=== PATIENT | male | born 1975 | race Caucasian/White ===

== ENCOUNTER 2017-01-20 11:46 | Inpatient (IN) | payer MEDICARE, OTHER ==
[2017-01-20 12:14] LABS: Oxyhemoglobin 89.3 % (94.0-97.0); Sodium 135 mmol/L (135-148)
[2017-01-20 12:14] LABS: #Eosinphils 0.1 thou/uL (0.0-0.7); #Lymphocytes 0.9 thou/uL (1.20-3.40); #Monocytes 0.3 thou/uL (0.11-0.59); %Basophils 0.1 % (0.0-1.0); %Eosinophils 0.6 % (0.0-10.0); %Lymphocytes 6.6 % (21.0-51.0); Hematocrit 36.8 % (42.0-52.0); Mean Platelet Volume 7.4 fL (7.4-10.4); Red Blood Cell (RBC) Count 4.07 mill/uL (4.70-6.10); White Blood Cell (WBC) Count 13.2 thou/uL (4.8-10.8)
[2017-01-20 12:15] LABS: Mode NRM; Modified Allen's Test POSITIVE; Vent NO
--- NOTE | 2017-01-20 12:15 | RAD ---
AP CHEST: History: Low oxygen saturation. History of pneumonia. Date: 01-20-17 Comparison: 07-26-16 FINDINGS: AP chest demonstrates Stephany rods in place. There is bilateral perihilar and central lung parench ymal airspace opacities compatible with bilateral pneumonia. No evidence of effusions seen. No eviden ce of pneumothorax seen. IMPRESSION: Bilateral central and perihilar opacities compatible with bilateral pneumonia or possible pulmonary e bailey. Correlate with clinical exam. POS: [facility]
[2017-01-20] MEDS ORDERED: Nitroglycerin 2% Ointment 1 INCH/1 GM Packet ONE (12:33)
[2017-01-20] MEDS ORDERED: Furosemide 40 MG/4 ML VIAL ONE (12:33)
[2017-01-20 12:37] LABS: ALT (SGPT) 9 U/L (8-55); AST (SGOT) 24 U/L (5-34); Alkaline Phosphatase 78 U/L (40-150); Anion Gap 10 mmol/L (10-20); BUN (Urea Nitrogen) 12 mg/dL (8.9-20.6); Bilirubin, Total 0.3 mg/dL (0.2-1.2); CK (CPK) 177 U/L (30-200); Calc. Creatinine Clearance 0 mL/min (70-130); Calcium 8.9 mg/dL (7.8-10.44); Carbon Dioxide 28 mmol/L (22-29); Chloride 100 mmol/L (98-107); Estimated GFR-MDRD Greater than 90; Globulin 3.2 g/dL (2.4-3.5); Protein, Total 6.8 g/dL (6.0-8.3)
[2017-01-20 13:10] LABS: Lactic Acid - Sepsis 1.8 mmol/L (0.5-2.2)
[2017-01-20] MEDS ORDERED: Azithromycin 500 MG, Admixture Fee 1 EACH in Sodium Chloride 0.9% 250 ML 250 ML IVPB SCH (14:00)
[2017-01-20] MEDS ORDERED: cefTRIAXone\\ROCEPHIN 2 GM, Admixture Fee 1 EACH in Sodium Chloride 0.9% 100 ML IVPB SCH (14:00)
[2017-01-20 14:27] LABS: Bilirubin Negative (Negative); Blood, Urine Small (Negative); Glucose, Urine (Dipstick) Negative (Negative); Ketone, Urine Negative (Negative); Nitrite Negative (Negative); Protein, Urine (Dipstick) Negative (Neg-Trace); Urobilinogen 0.2 mg/dL (0.2-1.0)
[2017-01-20 14:30] LABS: Bacteria/HPF None Seen HPF (None Seen); Hyaline Casts/LPF 0-3 HYALINE CAST LPF (0-3 Hyaline); RBC/HPF 0-3 HPF (0-3); Squamous Epithelial None Seen HPF (0-3); WBC/HPF None Seen HPF (0-3)
[2017-01-20 14:40] LABS: Amphetamine Not Detected (NotDetected); Methadone Not Detected (NotDetected); Methamphetamine Not Detected (NotDetected)
[2017-01-20] MEDS ORDERED: Ondansetron ODT 4 MG TAB SL PRN (15:35)
[2017-01-20] MEDS ORDERED: Ondansetron HCl/PF 4 MG/2 ML Vial IVP PRN (15:35)
[2017-01-20] MEDS ORDERED: Acetaminophen 325 MG TAB PO PRN (15:44)
[2017-01-20] MEDS ORDERED: Guaifenesin DM 100-10/5 ML UDCUP PO PRN (15:44)
[2017-01-20] MEDS ORDERED: cefTRIAXone\\ROCEPHIN 1 GM in Sodium Chloride 0.9% 100 ML IVPB SCH (15:45)
[2017-01-20] MEDS: Azithromycin 500 MG in Sodium Chloride 0.9% 250 ML 250 ML IVPB SCH (15:54)
[2017-01-20 15:57] VITALS: BMI 25.2
--- NOTE | 2017-01-20 16:22 | HP ---
REASON FOR ADMISSION: Acute respiratory failure with hypoxia, COPD exacerbation, bilateral pneumonia . HISTORY OF PRESENTING ILLNESS: The patient gives history of having shortness of breath from last nig ht. This has been progressively getting worse. He also developed headache. He has been expectorati ng brown sputum. Patient has history of COPD and also has had nearly 7 surgeries for scoliosis. The rods in his back has broken three times due to his coughing spells from his COPD. He currently has a broken sonali and his neurosurgeon has not been able to fix it due to his ongoing smoking. He was las t hospitalized here early part of this year for pneumonia. The patient states he usually gets pneumo nias during winter season. No complaints of fever, although he had temperature of 99 degrees here. He has been sleeping in a recliner at home due to his back issue. He cannot lay flat. PAST MEDICAL AND SURGICAL HISTORY: COPD, scoliosis with nearly 7 surgeries done for them. The first surgery was when he was 16 years of age. The last one was 2 years back. He has rods broken up thre e places now and needs replacement for the same. He follows up with Dr. Reyes in [place]. Prior pn eudeejay in February. CURRENT MEDICATIONS: Takes soma 350 mg 4 times daily, gabapentin 900 mg p.o. 3 times daily, Lasix 60 mg daily, [place] 10/325 mg one tab 6 times daily, potassium chloride daily. ALLERGIES: No known drug allergies. PERSONAL HISTORY: Does smokes one pack a day. Does not abuse alcohol or drugs. He lives with his p arents. Has a grown up son. FAMILY HISTORY: Mother has glaucoma. Father is healthy. CODE STATUS: FULL. POWER OF HOB MILL OPERATOR: Is his son, Mr. Jhony Tafoya. REVIEW OF SYSTEMS: The following complete review of systems was negative, unless otherwise mentioned in the HPI or below: Constitutional: Weight loss or gain, ability to conduct usual activities. Skin: Rash, itching. Eyes: Double vision, pain. ENT/Mouth: Nose bleeding, neck stiffness, pain, tenderness. Cardiovascular: Palpitations, dyspnea on exertion, orthopnea. Respiratory: Shortness of breath, wheezing, cough, hemoptysis, fever or night sweats. Gastrointestinal: Poor appetite, abdominal pain, heartburn, nausea, vomiting, constipation, or diarr hea. Genitourinary: Urgency, frequency, dysuria, nocturia. Musculoskeletal: Pain, swelling. Neurologic/Psychiatric: Anxiety, depression. Allergy/Immunologic: Skin rash, bleeding tendency. PHYSICAL EXAMINATION: GENERAL: Patient is a 41-year-old male who is currently not in any acute distress. VITAL SIGNS: Blood pressure is 136/74, pulse 108 per minute, respiratory rate is 20 per minute, temp erature 99 degrees Fahrenheit, saturating 64% on room air and 92% on 2 liters nasal cannula. NECK: Supple, no elevated JVD. EYES: Extraocular muscles intact. Pupils reacting to light. ORAL CAVITY: Mucous membranes are dry. No exudates or congestion. CARDIOVASCULAR SYSTEM: S1, S2 heard. Regular rhythm. RESPIRATORY SYSTEM: Air entry 1+ bilateral. Scattered rhonchi plus bilateral. ABDOMEN: Soft, bowel sounds heard. No tenderness, rigidity or guarding. EXTREMITIES: There is 2+ peripheral edema, no calf tenderness. VASCULAR SYSTEM: Peripheral pulses 1+ bilateral. No ischemic ulcerations or gangrene. CENTRAL NERVOUS SYSTEM: No gross focal deficits seen. Patient is alert, awake, and oriented well. PSYCHIATRIC SYSTEM: The patient's mood is euthymic. No hallucinations or delusions. IMAGING AND LABORATORY DATA: Prior echo done in February of this year showed EF of 50%-55%. White co unt of 13, hemoglobin and hematocrit 11 and 36, platelet count 175 with 90% neutrophils, MCV is 90. Blood gas done in the ER shows pH of 7.36, pCO2 45, pO2 of 71. Sodium 134, BUN 12, creatinine 0.8, g lucose 93. Liver enzymes within normal limits. Albumin is 3.6. BNP is 93. Urine drug screen is po sitive for opiates. Chest x-ray done shows bilateral pneumonia. BNP is 93. EKG done shows normal s inus rhythm at 100 beats per minute. There are Q-waves seen in lead II, III, AVF. CLINICAL IMPRESSION AND PLAN: Patient will be admitted to telemetry for pneumonia with history of sc oliosis and ongoing smoking and chronic obstructive pulmonary disease. He also has moderate chronic obstructive pulmonary disease exacerbation as well. We will place him on Zithromax and ceftriaxone a long with Solu-Medrol 40 mg IV q.6 hourly. He will be on DuoNebs. I have consulted Dr. Camejo for Pul monology. He will be on nicotine patch 21 mg daily. Patient was counseled with regarding smoking ce ssation and he wants to quit as well. We will also obtain respiratory cultures and respiratory viral pathogen smear as well. The patient was briefly on BiPAP on arrival in the ER with improvement satu rations from 64% on room air to 98% on BiPAP. He is currently on nasal cannula. We will continue to closely monitor him for any hemodynamic compromise.
[2017-01-20] MEDS ORDERED: FLU VACC QS2017-18 36 mo. & older 0.5 ML SYRINGE IM ONE (17:00)
[2017-01-20] MEDS: Nicotine 21 MG PATCH TD SCH (17:11)
[2017-01-20] MEDS: Gabapentin 300 MG CAP PO SCH (21:54)
[2017-01-20] MEDS: Clindamycin/D5W 600 MG in Premix Bag 1 BAG IVPB SCH (21:54)
[2017-01-20] MEDS: Docusate 100 MG CAP PO SCH (21:54)
[2017-01-20] MEDS: Famotidine 20 MG TAB PO SCH (21:54)
[2017-01-20] MEDS: HYDROcodone/Acetaminophen 10/325 mg Tablet PO PRN (21:55)
--- NOTE | 2017-01-21 00:18 | CON ---
REASON FOR CONSULTATION: 01/20/2017 HISTORY OF PRESENT ILLNESS: Espinoza Goldsmith is a 41-year-old gentleman whom I have seen in the past, pres ented with increasing shortness of breath and a cough, but he denies any fever, chills, sweats, hemop tysis. A long-term smoker, continues to smoke. He has severe limitation to activity. He stays at home with his mom and dad. He had been here numerous times in the hospital. He was seen here in 02/2016. PAST MEDICAL HISTORY: Pneumonia, chronic pain, multiple surgeries, hypertension, chronic pain medica tion. PAST SURGICAL HISTORY: Previous surgeries have otherwise included multiple surgeries including multi ple surgeries on his back. MEDICATIONS: Includes Ventolin inhaler, potassium, hydrocodone, Neurontin , Lasix 20 twice a da y, Soma. He sees his [facility] physician for routine care. ALLERGIES: None. REVIEW OF SYSTEMS: Otherwise, negative. PHYSICAL EXAMINATION: VITAL SIGNS: His sats are 92 on 4 liters, respiratory rate 18, temperature 99, pulse 103, blood pres sure 131/69. CHEST: Reveal bilateral crackles. CARDIAC: Normal S1, S2. No gallops. ABDOMEN: Soft, no masses. LABORATORY DATA: White count 13,000, H and H 11 and 36, platelet count 175. PO2 of 71, PCO2 45, pH 7.36 on nonrebreather. Electrolytes are normal. Sodium 134. Drug screen was negative except for op iates. X-ray, bilateral infiltrates as noted. IMPRESSION: 1. Bilateral bronchopneumonia, probably aspiration. 2. Tobacco use. 3. Chronic pain. PLAN: I will add some clindamycin to his present regime. Await sputum culture. We will deescalate once we get all cultures back. We will follow.
[2017-01-21] MEDS: Clindamycin/D5W 600 MG in Premix Bag 1 BAG IVPB SCH ×3 (06:11→22:20)
[2017-01-21] MEDS: HYDROcodone/Acetaminophen 10/325 mg Tablet PO PRN ×2 (06:11→09:47)
[2017-01-21 06:50] LABS: Anion Gap 11 mmol/L (10-20); BUN (Urea Nitrogen) 11 mg/dL (8.9-20.6); Calc. Creatinine Clearance 156 mL/min (70-130); Calcium 8.9 mg/dL (7.8-10.44); Carbon Dioxide 28 mmol/L (22-29); Chloride 102 mmol/L (98-107); Estimated GFR-MDRD Greater than 90; Hematocrit 36.5 % (42.0-52.0); Mean Platelet Volume 7.6 fL (7.4-10.4); Neutrophil 97 % (42-75); Red Blood Cell (RBC) Count 4.07 mill/uL (4.70-6.10); White Blood Cell (WBC) Count 16.4 thou/uL (4.8-10.8)
[2017-01-21] MEDS: Enoxaparin Sodium 40 MG/0.4 ML SYRINGE SC SCH (09:30)
[2017-01-21] MEDS: Gabapentin 300 MG CAP PO SCH ×3 (09:33→20:03)
[2017-01-21] MEDS: Famotidine 20 MG TAB PO SCH ×2 (09:34→20:03)
[2017-01-21] MEDS: Docusate 100 MG CAP PO SCH ×2 (09:34→20:03)
--- NOTE | 2017-01-21 10:58 | PDOC.PN ---
- Subjective Encounter Start Date: 01/21/17 Encounter Start Time: 07:50 Subjective: breathing better, still has sob - Objective Resuscitation Status: Resuscitation Status FULL:Full Resuscitation MAR Reviewed: Yes Vital Signs & Weight: Vital Signs (12 hours) Temp Pulse Resp BP Pulse Ox 01/21/17 07:09 80 16 01/21/17 04:40 100 01/21/17 04:00 98.7 F 84 16 123/66 100 01/20/17 23:55 93 L 01/20/17 23:43 98.7 F 107 H 20 116/56 L 93 L 01/20/17 23:24 100 16 97 Weight Weight 189 lb 9.6 oz I&O: 01/20/17 01/21/17 01/22/17 06:59 06:59 06:59 Intake Total 290 Output Total 650 Balance -360 Result Diagrams: 01/21/17 06:17 01/21/17 06:17 Phys Exam - Physical Examination HEENT: PERRLA, moist MMs Neck: no JVD, supple Respiratory: no wheezing, no rales rhonchi+ Cardiovascular: RRR, no significant murmur Gastrointestinal: soft, non-tender, positive bowel sounds Musculoskeletal: no edema, pulses present Neurological: non-focal, moves all 4 limbs Psychiatric: A&O x 3 Dx/Plan (1) COPD exacerbation Code(s): J44.1 - CHRONIC OBSTRUCTIVE PULMONARY DISEASE W (ACUTE) EXACERBATION Status: Acute (2) PNA (pneumonia) Code(s): J18.9 - PNEUMONIA, UNSPECIFIED ORGANISM Status: Acute Qualifiers: Pneumonia type: aspiration pneumonia Aspiration pneumonia type: due to regurgitated food Laterality: bilateral (3) Acute respiratory failure with hypoxia Code(s): J96.01 - ACUTE RESPIRATORY FAILURE WITH HYPOXIA Status: Resolved (4) Chronic anemia Code(s): D64.9 - ANEMIA, UNSPECIFIED Status: Chronic (5) Scoliosis Status: Chronic Qualifiers: Idiopathic scoliosis type: adolescent Spinal region: cervicothoracic Comment: has had nearly 7 surgeries, currently his rods are broken and needs another surgery (6) Tobacco abuse Code(s): Z72.0 - TOBACCO USE Status: Chronic - Plan is on ceftriaxone, azithro and clindamycin -: tmax of 100 last 24hrs -: iv steroids, nebs, tx to med floor, is on nasal canula -: viral pcr is +ve for adeno and rhinovirus * . Review of Systems - Medications/Allergies Allergies/Adverse Reactions: Allergies Allergy/AdvReac Type Severity Reaction Status Date / Time No Known Drug Allergies Allergy Verified 09/10/16 02:33 Medications: Current Medications Acetaminophen (Tylenol) 650 mg PO Q4H PRN PRN Reason: Headache/Fever or Pain Hydrocodone Bitart/Acetaminophen ([place] 10/325) 1 tab PO Q4H PRN PRN Reason: Moderate Pain (4-6) Last Admin: 01/21/17 09:47 Dose: 1 tab Albuterol/Ipratropium (Duoneb) 3 ml NEB [id number] [facility] Last Admin: 01/21/17 07:09 Dose: 3 ml Carisoprodol (Soma) 350 mg PO QID [facility] Last Admin: 01/21/17 09:34 Dose: 350 mg Docusate Sodium (Colace) 100 mg PO BID [facility] Last Admin: 01/21/17 09:34 Dose: 100 mg Enoxaparin Sodium (Lovenox) 40 mg SC 0900 [facility] Last Admin: 01/21/17 09:30 Dose: 40 mg Famotidine (Pepcid) 20 mg PO BID [facility] Last Admin: 01/21/17 09:34 Dose: 20 mg Gabapentin (Neurontin) 900 mg PO TID [facility] Last Admin: 01/21/17 09:33 Dose: 900 mg Guaifenesin/Dextromethorphan (Robitussin Dm) 15 ml PO Q4H PRN PRN Reason: Cough Azithromycin 500 mg/ Sodium (Chloride) 250 mls @ 250 mls/hr IVPB Q24HR [facility] Last Admin: 01/20/17 15:54 Dose: Not Given Ceftriaxone Sodium 1 gm/ (Syringe 0.4 ml/ Sterile Water) 10 mls @ 120 mls/hr SLOW IVP Q24HR [facility] Clindamycin Phosphate/Dextrose (600 mg/ Device) 50 mls @ 100 mls/hr IVPB Q8HR [facility] Last Admin: 01/21/17 06:11 Dose: 50 mls Methylprednisolone Sodium Succinate (Solu-Medrol) 20 mg IVP Q8HR [facility] Nicotine (Nicoderm Patch) 21 mg TD Q24HR [facility] Last Admin: 01/20/17 17:11 Dose: 21 mg
[2017-01-21] MEDS: cefTRIAXone\\ROCEPHIN 1 GM, Syringe 0.4 ML in Sterile Water 9.6 ML SLOW IVP SCH (14:40)
--- NOTE | 2017-01-21 14:54 | PRG ---
DATE OF SERVICE: 01/21/2017 PHYSICAL EXAMINATION: VITAL SIGNS: Temperature is 98, pulse is 80, respiratory rate 18, blood pressure 120/86. GENERAL: He denies any difficulty breathing. He is lying in bed. CHEST: Reveals decreased breath sounds, no wheezing. CARDIAC: Normal S1, S2, no gallops. ABDOMEN: Soft, no masses. LABORATORY DATA: White count 16,000, hemoglobin and hematocrit 11 and 36, platelet count 184. Elect rolytes are normal. ASSESSMENT: Bilateral bronchopneumonia, chronic pain. PLAN: Continue antibiotics, continue neb treatments, steroids. Ambulate.
[2017-01-21] MEDS: Nicotine 21 MG PATCH TD SCH (16:51)
[2017-01-21] MEDS: Azithromycin 500 MG in Sodium Chloride 0.9% 250 ML 250 ML IVPB SCH (16:51)
[2017-01-22] MEDS: HYDROcodone/Acetaminophen 10/325 mg Tablet PO PRN ×2 (00:51→12:43)
[2017-01-22 05:27] LABS: Anion Gap 11 mmol/L (10-20); BUN (Urea Nitrogen) 17 mg/dL (8.9-20.6); Calc. Creatinine Clearance 154 mL/min (70-130); Calcium 8.9 mg/dL (7.8-10.44); Carbon Dioxide 29 mmol/L (22-29); Chloride 102 mmol/L (98-107); Estimated GFR-MDRD Greater than 90
[2017-01-22] MEDS: Clindamycin/D5W 600 MG in Premix Bag 1 BAG IVPB SCH (05:41)
[2017-01-22 06:00] LABS: Mean Platelet Volume 8.2 fL (7.4-10.4); Neutrophil 83 % (42-75); Red Blood Cell (RBC) Count 3.91 mill/uL (4.70-6.10); White Blood Cell (WBC) Count 16.8 thou/uL (4.8-10.8)
[2017-01-22] MEDS: Gabapentin 300 MG CAP PO SCH ×3 (08:37→20:56)
[2017-01-22] MEDS: Enoxaparin Sodium 40 MG/0.4 ML SYRINGE SC SCH (08:37)
[2017-01-22] MEDS: Docusate 100 MG CAP PO SCH ×2 (08:37→20:56)
[2017-01-22] MEDS: Famotidine 20 MG TAB PO SCH ×2 (08:37→20:56)
--- NOTE | 2017-01-22 11:52 | PDOC.PN ---
- Subjective Encounter Start Date: 01/22/17 Encounter Start Time: 10:15 Subjective: still has sob -: no chest pain - Objective Resuscitation Status: Resuscitation Status FULL:Full Resuscitation MAR Reviewed: Yes Vital Signs & Weight: Vital Signs (12 hours) Temp Pulse Resp BP Pulse Ox 01/22/17 08:00 98 F 68 20 99 01/22/17 07:48 68 20 96 01/22/17 07:43 98.0 F 69 16 119/71 97 01/22/17 04:51 99.6 F 77 22 H 124/63 99 01/22/17 03:43 94 L 01/22/17 00:00 98 F 86 22 H 110/59 L 91 L Weight Weight 189 lb 9.6 oz I&O: 01/21/17 01/22/17 01/23/17 06:59 06:59 06:59 Intake Total 290 931 Output Total 650 Balance -360 931 Result Diagrams: 01/22/17 04:18 01/22/17 04:18 Phys Exam - Physical Examination HEENT: PERRLA, moist MMs Neck: no JVD, supple Respiratory: no wheezing, no rales rhonchi+ Cardiovascular: RRR, no significant murmur Gastrointestinal: soft, non-tender, no distention, positive bowel sounds Musculoskeletal: no edema, pulses present Neurological: non-focal, moves all 4 limbs Psychiatric: A&O x 3 Dx/Plan (1) COPD exacerbation Code(s): J44.1 - CHRONIC OBSTRUCTIVE PULMONARY DISEASE W (ACUTE) EXACERBATION Status: Acute (2) PNA (pneumonia) Code(s): J18.9 - PNEUMONIA, UNSPECIFIED ORGANISM Status: Acute Qualifiers: Pneumonia type: aspiration pneumonia Aspiration pneumonia type: due to regurgitated food Laterality: bilateral (3) Acute respiratory failure with hypoxia Code(s): J96.01 - ACUTE RESPIRATORY FAILURE WITH HYPOXIA Status: Resolved (4) Chronic anemia Code(s): D64.9 - ANEMIA, UNSPECIFIED Status: Chronic (5) Scoliosis Status: Chronic Qualifiers: Idiopathic scoliosis type: adolescent Spinal region: cervicothoracic Comment: has had nearly 7 surgeries, currently his rods are broken and needs another surgery (6) Tobacco abuse Code(s): Z72.0 - TOBACCO USE Status: Chronic - Plan is on nebs, steroids -: azithromycin, off clinda now -: oob to chair and amb more -: i.spirometer * . Review of Systems - Medications/Allergies Allergies/Adverse Reactions: Allergies Allergy/AdvReac Type Severity Reaction Status Date / Time No Known Drug Allergies Allergy Verified 09/10/16 02:33 Medications: Current Medications Acetaminophen (Tylenol) 650 mg PO Q4H PRN PRN Reason: Headache/Fever or Pain Last Admin: 01/21/17 19:15 Dose: 650 mg Hydrocodone Bitart/Acetaminophen ([place] 10/325) 1 tab PO Q4H PRN PRN Reason: Moderate Pain (4-6) Last Admin: 01/22/17 00:51 Dose: 1 tab Albuterol/Ipratropium (Duoneb) 3 ml NEB [id number] [facility] Last Admin: 01/22/17 07:48 Dose: 3 ml Carisoprodol (Soma) 350 mg PO QID [facility] Last Admin: 01/22/17 08:36 Dose: Not Given Docusate Sodium (Colace) 100 mg PO BID [facility] Last Admin: 01/22/17 08:37 Dose: 100 mg Enoxaparin Sodium (Lovenox) 40 mg SC 0900 [facility] Last Admin: 01/22/17 08:37 Dose: 40 mg Famotidine (Pepcid) 20 mg PO BID [facility] Last Admin: 01/22/17 08:37 Dose: 20 mg Gabapentin (Neurontin) 900 mg PO TID [facility] Last Admin: 01/22/17 08:37 Dose: 900 mg Guaifenesin/Dextromethorphan (Robitussin Dm) 15 ml PO Q4H PRN PRN Reason: Cough Azithromycin 500 mg/ Sodium (Chloride) 250 mls @ 250 mls/hr IVPB Q24HR [facility] Last Admin: 01/21/17 16:51 Dose: 250 mls Ceftriaxone Sodium 1 gm/ (Syringe 0.4 ml/ Sterile Water) 10 mls @ 120 mls/hr SLOW IVP Q24HR [facility] Last Admin: 01/21/17 14:40 Dose: 10 mls Methylprednisolone Sodium Succinate (Solu-Medrol) 20 mg IVP Q8HR [facility] Last Admin: 01/22/17 05:41 Dose: 20 mg Nicotine (Nicoderm Patch) 21 mg TD Q24HR [facility] Last Admin: 01/21/17 16:51 Dose: 21 mg Sodium Chloride (Flush - Normal Saline) 10 ml IVF PRN PRN PRN Reason: Saline Flush Last Admin: 01/22/17 05:41 Dose: 10 ml
--- NOTE | 2017-01-22 13:29 | PRG ---
DATE OF SERVICE: 01/22/2017 SUBJECTIVE: The patient is a 41-year-old male who apparently was having difficulty breathing last ni ght, though he sats on a Ventimask at 99. Denies any difficulty breathing. PHYSICAL EXAMINATION: VITAL SIGNS: Pulse 68, temperature 98, blood pressure 190/77. CHEST: Reveals bilateral rhonchi and crackles. CARDIAC: Normal S1, S2. No gallops. ABDOMEN: Soft, no masses. LABORATORY DATA: White count 16,000, hemoglobin and hematocrit is 10 and 30, platelet count is chitra l. Electrolytes are normal. IMPRESSION: 1. Respiratory failure, bilateral bronchopneumonia. 2. Chronic pain. PLAN: X-ray is being ordered. Hopefully, we will try and deescalate his antibiotics and his steroid s. Continue PT and supportive care. We will follow.
--- NOTE | 2017-01-22 13:52 | RAD ---
TWO VIEW CHEST: HISTORY: Dyspnea. COMPARISON: 01/20/17. FINDINGS: Interstitial and hazy alveolar infiltrates are seen bilaterally. These infiltrates may be slightly i mproved when compared to 01/20/17. POS: [facility]
[2017-01-22] MEDS: Azithromycin 500 MG in Sodium Chloride 0.9% 250 ML 250 ML IVPB SCH (15:05)
[2017-01-22] MEDS: cefTRIAXone\\ROCEPHIN 1 GM, Syringe 0.4 ML in Sterile Water 9.6 ML SLOW IVP SCH (15:05)
[2017-01-22] MEDS: Nicotine 21 MG PATCH TD SCH (17:30)
[2017-01-23] MEDS: HYDROcodone/Acetaminophen 10/325 mg Tablet PO PRN ×3 (02:10→14:11)
[2017-01-23 04:41] LABS: Anion Gap 12 mmol/L (10-20); BUN (Urea Nitrogen) 20 mg/dL (8.9-20.6); Calc. Creatinine Clearance 167 mL/min (70-130); Calcium 8.4 mg/dL (7.8-10.44); Carbon Dioxide 28 mmol/L (22-29); Chloride 104 mmol/L (98-107); Estimated GFR-MDRD Greater than 90
[2017-01-23 04:52] LABS: Band 1 % (5-11); Hematocrit 32.4 % (42.0-52.0); Mean Platelet Volume 7.2 fL (7.4-10.4); Neutrophil 81 % (42-75); Red Blood Cell (RBC) Count 3.64 mill/uL (4.70-6.10); White Blood Cell (WBC) Count 10.4 thou/uL (4.8-10.8)
[2017-01-23] MEDS: Docusate 100 MG CAP PO SCH ×2 (08:19→20:37)
[2017-01-23] MEDS: Famotidine 20 MG TAB PO SCH ×2 (08:20→20:38)
[2017-01-23] MEDS: Enoxaparin Sodium 40 MG/0.4 ML SYRINGE SC SCH (08:20)
[2017-01-23] MEDS: Gabapentin 300 MG CAP PO SCH ×3 (08:24→20:37)
[2017-01-23] MEDS: predniSONE 20 MG TAB PO SCH (09:49)
[2017-01-23] MEDS: Doxycycline 100 MG CAP PO SCH ×2 (10:39→20:37)
--- NOTE | 2017-01-23 12:53 | PDOC.PN ---
- Subjective Encounter Start Date: 01/23/17 Encounter Start Time: 11:00 Subjective: breathing better today -: is amb in room - Objective Resuscitation Status: Resuscitation Status FULL:Full Resuscitation MAR Reviewed: Yes Vital Signs & Weight: Vital Signs (12 hours) Temp Pulse Resp BP Pulse Ox 01/23/17 08:00 97.9 F 60 16 108/61 100 01/23/17 07:47 53 L 24 H 100 Weight Weight 189 lb 9.6 oz I&O: 01/22/17 01/23/17 01/24/17 06:59 06:59 06:59 Intake Total 931 961 Output Total 300 Balance 931 661 Result Diagrams: 01/23/17 03:42 01/23/17 03:42 Phys Exam - Physical Examination HEENT: PERRLA, moist MMs Neck: no JVD, supple Respiratory: no wheezing, no rales rhonchi+ Cardiovascular: RRR, no significant murmur Gastrointestinal: soft, non-tender, positive bowel sounds Musculoskeletal: no edema, pulses present Neurological: non-focal, moves all 4 limbs Psychiatric: A&O x 3 Dx/Plan (1) COPD exacerbation Code(s): J44.1 - CHRONIC OBSTRUCTIVE PULMONARY DISEASE W (ACUTE) EXACERBATION Status: Acute (2) PNA (pneumonia) Code(s): J18.9 - PNEUMONIA, UNSPECIFIED ORGANISM Status: Acute Qualifiers: Pneumonia type: aspiration pneumonia Aspiration pneumonia type: due to regurgitated food Laterality: bilateral (3) Acute respiratory failure with hypoxia Code(s): J96.01 - ACUTE RESPIRATORY FAILURE WITH HYPOXIA Status: Resolved (4) Chronic anemia Code(s): D64.9 - ANEMIA, UNSPECIFIED Status: Chronic (5) Scoliosis Status: Chronic Qualifiers: Idiopathic scoliosis type: adolescent Spinal region: cervicothoracic Comment: has had nearly 7 surgeries, currently his rods are broken and needs another surgery (6) Tobacco abuse Code(s): Z72.0 - TOBACCO USE Status: Chronic - Plan is on ceftriaxone, duoneb -: oral prednisone -: taper and dc nasal oxygen for spo2 of 90% -: to amb as tolerated -: dc plan in 24-36hrs * . Review of Systems - Medications/Allergies Allergies/Adverse Reactions: Allergies Allergy/AdvReac Type Severity Reaction Status Date / Time No Known Drug Allergies Allergy Verified 09/10/16 02:33 Medications: Current Medications Acetaminophen (Tylenol) 650 mg PO Q4H PRN PRN Reason: Headache/Fever or Pain Last Admin: 01/21/17 19:15 Dose: 650 mg Hydrocodone Bitart/Acetaminophen ([place] 10/325) 1 tab PO Q4H PRN PRN Reason: Moderate Pain (4-6) Last Admin: 01/23/17 09:48 Dose: 1 tab Albuterol/Ipratropium (Duoneb) 3 ml NEB [id number] [facility] Last Admin: 01/23/17 07:47 Dose: 3 ml Carisoprodol (Soma) 350 mg PO QID [facility] Last Admin: 01/23/17 12:48 Dose: 350 mg Docusate Sodium (Colace) 100 mg PO BID [facility] Last Admin: 01/23/17 08:19 Dose: Not Given Doxycycline Hyclate (Vibramycin) 100 mg PO BID [facility] Last Admin: 01/23/17 10:39 Dose: 100 mg Enoxaparin Sodium (Lovenox) 40 mg SC 0900 [facility] Last Admin: 01/23/17 08:20 Dose: 40 mg Famotidine (Pepcid) 20 mg PO BID [facility] Last Admin: 01/23/17 08:20 Dose: 20 mg Gabapentin (Neurontin) 900 mg PO TID [facility] Last Admin: 01/23/17 08:24 Dose: 900 mg Guaifenesin/Dextromethorphan (Robitussin Dm) 15 ml PO Q4H PRN PRN Reason: Cough Ceftriaxone Sodium 1 gm/ (Syringe 0.4 ml/ Sterile Water) 10 mls @ 120 mls/hr SLOW IVP Q24HR [facility] Last Admin: 01/22/17 15:05 Dose: 10 mls Nicotine (Nicoderm Patch) 21 mg TD Q24HR [facility] Last Admin: 01/22/17 17:30 Dose: 21 mg Prednisone (Prednisone) 20 mg PO QAM-WM [facility] Last Admin: 01/23/17 09:49 Dose: 20 mg Sodium Chloride (Flush - Normal Saline) 10 ml IVF PRN PRN PRN Reason: Saline Flush Last Admin: 01/23/17 05:25 Dose: 10 ml
--- NOTE | 2017-01-23 13:36 | PRG ---
DATE OF SERVICE: 01/23/2017 SUBJECTIVE: Mr. Espinoza Goldsmith this morning is better. PHYSICAL EXAMINATION: GENERAL: Awake, alert, responsive. VITAL SIGNS: Sats are 90% on 40% Ventimask, temperature 97, respirations 16, pulse 60. CHEST: Bilateral crackles. CARDIAC: Normal S1, S2, no gallops. ABDOMEN: Soft. LABORATORY DATA: White count 10,000. Electrolytes are normal. IMAGING DATA: X-ray taken yesterday shows infiltrates are somewhat better, though he still got bilat eral haziness. IMPRESSION: Bilateral bronchopneumonia, improved. PLAN: Switch over to oral antibiotics. Nutrition and PT. We will follow.
[2017-01-23] MEDS: cefTRIAXone\\ROCEPHIN 1 GM, Syringe 0.4 ML in Sterile Water 9.6 ML SLOW IVP SCH (14:08)
[2017-01-23] MEDS: Nicotine 21 MG PATCH TD SCH (14:12)
[2017-01-24] MEDS: HYDROcodone/Acetaminophen 10/325 mg Tablet PO PRN ×3 (04:07→12:51)
[2017-01-24] MEDS: Doxycycline 100 MG CAP PO SCH (07:50)
[2017-01-24] MEDS: predniSONE 20 MG TAB PO SCH (07:50)
[2017-01-24] MEDS: Enoxaparin Sodium 40 MG/0.4 ML SYRINGE SC SCH (07:51)
[2017-01-24] MEDS: Docusate 100 MG CAP PO SCH (07:51)
[2017-01-24] MEDS: Famotidine 20 MG TAB PO SCH (07:52)
[2017-01-24] MEDS: Gabapentin 300 MG CAP PO SCH ×2 (07:58→14:47)
--- NOTE | 2017-01-24 08:54 | RAD ---
CHEST TWO VIEWS: HISTORY: Congestive heart failure. COMPARISON: Chest two view of 01/22/2017. FINDINGS: Heart size is enlarged. Small effusions. Improving edema. No pneumothorax. IMPRESSION: Improving edema and pleural effusions. POS: [facility]
[2017-01-24 09:09] VITALS: TEMP 97.9
--- NOTE | 2017-01-24 11:54 | PRG ---
DATE OF SERVICE: 01/24/2017 SUBJECTIVE: This morning, he is awake, alert, responsive. He is better. OBJECTIVE: VITAL SIGNS: Sats 100%, temperature 98, pulse 68, respiratory rate 18. CHEST: Chest reveals decreased breath sounds, no wheezing. CARDIAC: Normal S1, S2. ABDOMEN: Soft, no masses. IMPRESSION: Respiratory failure, aspiration, chronic pain. PLAN: Discontinue p.o. antibiotics. X-ray. If improved, he can be discharged home on present medic ations.
[2017-01-24] MEDS: Nicotine 21 MG PATCH TD SCH (14:48)
[2017-01-24 15:07] VITALS: BP 121/65
--- NOTE | 2017-01-24 15:31 | DIS ---
DATE OF ADMISSION: 01/20/2017 DATE OF DISCHARGE: 01/24/2017 DISCHARGE DIAGNOSES: 1. Acute on chronic hypoxemic respiratory failure. 2. Suspected bilateral pneumonia with gram-positive cocci, improved. 3. Acute chronic obstructive pulmonary disease exacerbation. 4. Tobacco abuse, ongoing. 5. Chronic opiate therapy. CONSULTATIONS: Dr. Camejo with Pulmonology Service. PERTINENT LABORATORY AND X-RAY FINDINGS: Basic metabolic profile within normal limits. Lactic acid level 1.8. BNP ranged between 94-227. CBC showed a white blood cell count ranging between 10.4-16.8 . Hemoglobin ranged between 10.1-11.1. Urine drug screen dated 01/20/2017, positive for opiates. B lood cultures x2 from 01/20/2015, showed no growth at 48 hours. Respiratory virus panel dated 2016, positive for adenovirus and rhinovirus. Sputum culture dated 01/20/2017, showed normal darshan. Portable chest x-ray dated 01/20/2017, showed bilateral central and perihilar opacities consistent w ith bilateral pneumonia. Portable chest x-ray dated 01/22/2017, showed alveolar infiltrates bilatera lly. HOSPITAL COURSE: The patient was initially admitted after presenting with acute hypoxemic respirator y failure in the context of known chronic obstructive pulmonary disease and ongoing tobacco abuse. T he patient underwent general evaluation including chest imaging showing evidence of bilateral pneumon ia with bilateral infiltrates as stated previously. The patient was placed on broad-spectrum IV anti biotic therapy including Zithromax and Rocephin, and initiated on Solu-Medrol. Patient also was give n bronchodilator therapy with DuoNebs and placed on nicotine patch. The patient did clinically impro ve in the first 24-48 hours after a brief period requiring BiPAP noninvasive mechanical ventilation i n the emergency room. The patient was continued on oxygen by nasal cannula, transitioning to room ai r with O2 saturations greater than 95% on room air by the time of discharge. The patient overall rem ained clinically stable during the hospital course, tolerating regular oral intake, voiding appropria tely and ready for discharge on 01/24/2017. DISCHARGE MEDICATIONS: 1. Soma 350 mg 1 tab p.o. q.i.d. 2. Vibramycin 100 mg p.o. b.i.d. x5 days. 3. Lasix 20 mg 1 tab p.o. b.i.d. 4. Neurontin 900 mg p.o. t.i.d. 5. [place] 10/325 mg 1 tab p.o. q.4-6 hours p.r.n. 6. K-Dur 20 mEq p.o. b.i.d. 7. Prednisone 20 mg 1 tab p.o. daily x 3 days, followed by half a tab p.o. daily x3 days. 8. Ventolin HFA 2 puffs inhaled q.6 hours p.r.n. FOLLOWUP: Patient is to follow up with his primary care provider, Dr. Peewee Mitchell, on 02/02/2017. CONDITION ON DISCHARGE: Fair. ACTIVITY: Ad luis f. DIET: Heart healthy. CODE STATUS: Full. DISPOSITION: Home on 01/24/2017.
== END 2017-01-24 17:04 | disposition home health service (06) | DRG 177 ==
LOC: ERS 11:46 → 2NO 15:08 → T4-B 01-21 13:13
PROVIDERS: ADMIT Internal Medicine; ATTEND Internal Medicine
DX: J69.0 Pneumonitis due to inhalation of food and vomit (principal); J96.21 Acute and chronic respiratory failure with hypoxia; J44.0 Chronic obstructive pulmonary disease with (acute) lower respiratory infection; J44.1 Chronic obstructive pulmonary disease with (acute) exacerbation; J15.9 Unspecified bacterial pneumonia; F17.210 Nicotine dependence, cigarettes, uncomplicated; Z87.01 Personal history of pneumonia (recurrent); Z79.891 Long term (current) use of opiate analgesic; I10 Essential (primary) hypertension; D64.9 Anemia, unspecified; M41.123 Adolescent idiopathic scoliosis, cervicothoracic region
CPT/HCPCS: 36415; 71010; 71020; 80048; 80053; 80306; 81003; 81015; 82550; 82553; 82805; 83605; 83880; 84484; 85025; 87040; 87070; 87205; 87633; 93005; 94660; 94760; 96365; 96375; A4216; G8978-GP-CJ; G8979-GP-CI; J0456; J0696; J1650; J1940; J2920; J3490; J7050; J7506; J7620

== ENCOUNTER 2017-03-14 09:35 | Inpatient (IN) | payer MEDICARE, MEDICAID ==
[2017-03-14 10:39] LABS: ALT (SGPT) Less than 7 U/L (8-55); AST (SGOT) 29 U/L (5-34); Albumin 3.6 g/dL (3.5-5.0); Alkaline Phosphatase 80 U/L (40-150); Anion Gap 13 mmol/L (10-20); BUN (Urea Nitrogen) 11 mg/dL (8.9-20.6); Bilirubin, Total 0.4 mg/dL (0.2-1.2); Calc. Creatinine Clearance 0 mL/min (70-130); Calcium 8.5 mg/dL (7.8-10.44); Carbon Dioxide 21 mmol/L (22-29); Chloride 102 mmol/L (98-107); Estimated GFR-MDRD 89; Globulin 2.8 g/dL (2.4-3.5); Glucose 94 mg/dL (70-105); Potassium 3.9 mmol/L (3.5-5.1); Protein, Total 6.4 g/dL (6.0-8.3); Sodium 132 mmol/L (136-145)
--- NOTE | 2017-03-14 10:58 | RAD ---
PORTABLE CHEST 1 VIEW: Date: 03/14/17 Time: 1004 hours HISTORY: Cough. FINDINGS/IMPRESSION: Comparison made with exam of 01/24/17. The heart is enlarged. Postop changes and metallic hardware in the thoracic spine are again seen. Pat brittany interstitial air space disease in the lung giraldo with bibasilar dominance is present. No pneumot horaces or large effusions are identified. POS: H
[2017-03-14] MEDS ORDERED: Piperacillin/Tazobactam 4.5 GM in Sodium Chloride 0.9% 100 ML IVPB SCH (11:00)
[2017-03-14 11:05] LABS: Band 8 % (5-11); Lymphocytes 2 % (21-51); MDiff Complete? YES; Mean Corpuscular HGB CONC 31.6 g/dL (32.0-36.0); Mean Corpuscular Volume 88.7 fl (80.0-94.0); Monocytes 1 % (0-10); Neutrophil 89 % (42-75); Platelet Count 171 thou/uL (130-400); RBC Distribution Width 15.1 % (11.5-14.5); Red Blood Cell (RBC) Count 4.27 mill/uL (4.70-6.10); White Blood Cell (WBC) Count 16.3 thou/uL (4.8-10.8)
[2017-03-14 12:08] LABS: Bilirubin Negative (Negative); Blood, Urine Negative (Negative); Clarity CLEAR (Clear); Glucose, Urine (Dipstick) Negative (Negative); Leukocyte Negative (Negative); Nitrite Negative (Negative); Protein, Urine (Dipstick) Negative (Neg-Trace); Specific Gravity, Urine 1.021 (1.002-1.036); pH, Urine 5.5 (5.0-9.0)
[2017-03-14 12:12] LABS: CKMB 1.9 ng/mL (0-6.6); Troponin I Less than 0.010 ng/mL (< 0.028)
[2017-03-14] MEDS ORDERED: Fentanyl 100 MCG/2 ML VIAL ONE (12:29)
[2017-03-14] MEDS ORDERED: Mag-Al 1200 mg/1200 mg/30 ML UDCUP PO PRN (14:05)
[2017-03-14] MEDS ORDERED: Loratadine 10 MG TAB PO PRN (14:05)
[2017-03-14] MEDS ORDERED: Loperamide HCl 2 MG CAP PO PRN (14:05)
[2017-03-14] MEDS ORDERED: Ondansetron ODT 4 MG TAB PO PRN (14:05)
[2017-03-14] MEDS ORDERED: Chloraseptic Spray 180 ml Bottle PO PRN (14:05)
[2017-03-14] MEDS ORDERED: Sodium Chloride 0.65% Nasal 44 ML BOT EA NARE PRN (14:05)
[2017-03-14] MEDS ORDERED: Senokot 8.6 MG TAB PO PRN (14:05)
[2017-03-14] MEDS ORDERED: hydrALAZINE 20 MG/ML VIAL SLOW IVP PRN (14:05)
[2017-03-14] MEDS ORDERED: Diabetic Tussin 200 MG/10 ML UDCUP PO PRN (14:05)
[2017-03-14] MEDS ORDERED: Eucerin (Mineral Oil/Petrolatum,White) 30 gm Jar TOP PRN (14:05)
[2017-03-14] MEDS ORDERED: Ondansetron HCl/PF 4 MG/2 ML Vial IVP PRN (14:05)
[2017-03-14] MEDS ORDERED: Acetaminophen 325 MG TAB PO PRN (14:05)
[2017-03-14] MEDS ORDERED: Artificial Tears 18 DROP/0.9 ML EA EYE PRN (14:05)
[2017-03-14] MEDS ORDERED: Zolpidem Tartrate 5 MG TAB PO PRN (14:05)
[2017-03-14] MEDS ORDERED: Milk Of Magnesia 30 ML UDCUP PO PRN (14:05)
--- NOTE | 2017-03-14 14:06 | HP ---
PRIMARY CARE PHYSICIAN: Dr. Peewee Mitchell REASON FOR ADMISSION: Pneumonia, acute hypoxic respiratory failure, hypotension , sepsis. HISTORY OF PRESENT ILLNESS: A 42-year-old male who has underlying history of chronic pain disorder on chronic narcotics as well as ongoing tobacco abuse disorder. He also has underlying history of COPD, who went to see his primary care physician today and he was found hypotensive, hypoxic and that is why the patient's primary care physician advised him to go the emergency room. As per report from primary care physician's office this patient was saturating 81% on room air. This patient is not using oxygen at home. He was hypotensive with blood pressure 81/55 when he arrived to the ER, he was given IV fluid and after that he responded to IV fluid and his blood pressure improved to 107/60. The patient was afebrile. He was feeling shortness of breath, cough, and generalized weakness. He denies any flu-like illness. He denies any orthopnea , PND, leg swelling. He denies any hemoptysis. He denies any sore throat. He was having shortness of breath on exertion. Symptoms got worse last night and this morning it was very worse and that is why he came to the emergency room for evaluation. In ER patient continue to remain hypoxic even with oxygen, so we decided to start BIPAP in ER and changed admission to IMCU. REVIEW OF SYSTEMS: The following complete review of systems was negative, unless otherwise mentioned in the HPI or below: Constitutional: Weight loss or gain, ability to conduct usual activities. Skin: Rash, itching. Eyes: Double vision, pain. ENT/Mouth: Nose bleeding, neck stiffness, pain, tenderness. Cardiovascular: Palpitations, dyspnea on exertion, orthopnea. Respiratory: Shortness of breath, wheezing, cough, hemoptysis, fever or night sweats. Gastrointestinal: Poor appetite, abdominal pain, heartburn, nausea, vomiting, constipation, or diarrhea. Genitourinary: Urgency, frequency, dysuria, nocturia. Musculoskeletal: Pain, swelling. Neurologic/Psychiatric: Anxiety, depression. Allergy/Immunologic: Skin rash, bleeding tendency. Please see my HPI for pertinent positives and negatives. All other review of systems reviewed and negative except as mentioned in the HPI. ALLERGIES: No known drug allergies. CURRENT HOME MEDICATIONS: Soma 350 mg p.o. 4 times daily, gabapentin 300 mg 3 times daily, Lasix 20 mg twice daily, [place] 10 one tablet q.6 hours p.r.n., potassium 1 tablet p.o. daily. PAST MEDICAL HISTORY: History of diastolic heart failure, chronic pain disorder on chronic pain medication, scoliosis, history of ongoing tobacco abuse disorder, history of bilateral pneumonia, hospitalization for partial small-bowel obstruction. PAST SURGICAL HISTORY: Multiple back surgeries. PAST PSYCHIATRIC HISTORY: Reviewed and negative. FAMILY HISTORY: No strong family history of premature coronary artery disease, stroke or cancer. SOCIAL HISTORY: Patient continues to smoke about 1 pack per day. No history of alcohol or other illicit drug abuse. EMERGENCY ROOM COURSE: The patient is given IV fluid 2 liter, vancomycin, Levaquin, Zosyn and fentanyl 25 micrograms. PHYSICAL EXAMINATION: VITAL SIGNS: Initially blood pressure 81/55, pulse 100, respiratory rate 22, temperature 98.4, saturation 82% on room air, weight 84.8 kilograms. GENERAL: The patient is chronically ill, hypotensive, tachycardic. HEENT: Head is normocephalic, atraumatic. Eyes; pupils round, reactive to light. Extraocular muscles intact. ENT: Oropharynx within normal limits. Moist mucous membranes. No oral lesions. No pharyngeal erythema, no exudate. NECK: Supple, no JVD, no thyromegaly, no carotid bruits. LUNGS: Bilateral end expiratory wheezing heard mostly on the right lower lobe, air entry reduced on the right lower lobe as well. Scattered rales noted. CARDIAC: S1, S2 regular, tachycardia, no murmur, no gallop, no rub. ABDOMEN: Soft, bowel sounds present, nontender, nondistended. No organomegaly , no mass, no suprapubic tenderness. BACK: Unremarkable, no CVA tenderness. EXTREMITIES: Upper extremity passive movement of all joints are normal. Lower extremities; trace edema noted. Good peripheral pulsation. SKIN: No skin rash. HEMATOLOGICAL: No lymphadenopathy. NEUROLOGIC: Nonfocal examination. Speech normal. He moves all 4 limbs. SIGNIFICANT LABS: Chest x-ray based on my review, cardiomegaly, postoperative changes and metallic hardware in thoracic spine. Patchy interstitial airspace disease in lung giraldo with bibasilar prominence. CBC: WBC 16.3, hemoglobin 12.0, platelets 171 with bandemia. BMP: Sodium 132 , potassium 3.9, chloride 102, carbon dioxide 21, anion gap 13, BUN 11, creatinine 0.93, glucose 94, calcium 8.5, lactic acid 2.7. LFT: AST 29, ALT less than 7, alkaline phosphatase 80, albumin 3.6. BNP 182.4. CK 119, CK-MB 1.9, troponin I less than 0.010. Urinalysis normal. Influenza A and B negative. ASSESSMENT AND PLAN: 1. Acute hypoxic respiratory failure likely due to bibasilar pneumonia, community acquired. will need BIPAP, so will admit in IMCU, pulmonary will be consulted. DD is CAP ?? noncardiogenic pulmonary edema from narcotics 2. Sepsis with acute organ dysfunction. This patient has leukocytosis with bandemia, hypoxic respiratory failure, lactic acidosis, source of infection is pneumonia, associated hypoxic respiratory failure. 3. Bibasilar community-acquired pneumonia with hypoxia, respiratory failure and sepsis. The patient will be given broad spectrum antibiotic therapy with cefepime and Levaquin. We will monitor on IMCU. We will follow up on culture result. 4. Lactic acidosis, likely due to sepsis. We will repeat lactic acid level tomorrow. 5. Elevated BNP. This patient had most recently echocardiography last year in February which showed normal systolic dysfunction. At this point, this patient does not have any cardiac etiology. 6. Tobacco abuse disorder. Smoking cessation counseling given. Healthy lifestyle measures discussed with the patient. We will offer nicotine patch if needed. 7. Chronic pain disorder. At this point, because of low blood pressure and hypoxia will avoid his chronic pain medication, but whenever hemodynamics improves, then we will continue Soma, Neurontin and [place] as per home dosage. 8. History of scoliosis. 9. Deep venous thrombosis prophylaxis. Lovenox 40 mg subcu daily. 10. Gastrointestinal prophylaxis, Pepcid 20 mg p.o. b.i.d. 11. Mild protein calorie malnutrition. The patient will be given nutritional support with Ensure b.i.d. 12. Code status: Full code, pt does not have any surrogate decision maker. Disposition and plan based on clinical course. While in hospital we will monitor his oxygen saturation. We are expecting patient's stay in the hospital more than 2 midnights. Plan of care discussed with the patient in detail. MTDD
[2017-03-14 14:12] LABS: Lactic Acid 1.8 mmol/L (0.5-2.2)
[2017-03-14] MEDS ORDERED: Furosemide 20 MG/2 ML VIAL SLOW IVP SCH (14:15)
[2017-03-14] MEDS ORDERED: Furosemide 20 MG/2 ML VIAL ONE (14:26)
[2017-03-14] MEDS: Cefepime 2 GM, Syringe 2.5 ML in Sterile Water 10 ML SLOW IVP SCH (14:34)
[2017-03-14] MEDS ORDERED: HYDROcodone/Acetaminophen 5/325 mg Tablet ONE (14:47)
[2017-03-14] MEDS: HYDROcodone/Acetaminophen 5/325 mg Tablet PO PRN ×2 (14:56→23:20)
[2017-03-14] MEDS: Nicotine 21 MG PATCH TD SCH (16:38)
[2017-03-14 19:57] VITALS: BMI 24.5
[2017-03-14] MEDS: Famotidine 20 MG TAB PO SCH (20:40)
[2017-03-14] MEDS: guaiFENesin ER 600 MG TAB PO SCH (20:40)
[2017-03-14] MEDS ORDERED: FLU VACC QS2017-18 36 mo. & older 0.5 ML SYRINGE IM ONE (21:00)
[2017-03-14] MEDS ORDERED: Cefepime 2 GM in Sodium Chloride 0.9% 100 ML IVPB SCH (21:00)
--- NOTE | 2017-03-15 01:14 | CON ---
DATE OF CONSULTATION: 03/14/2017 HISTORY OF PRESENT ILLNESS: Mr. Goldsmith is a 42-year-old male with multiple medical problems. He was recently in the hospital and discharged on 01/24, with the diagnosis of acute on chronic respi ratory failure, hypoxic, bilateral pneumonia, gram positive cocci, COPD exacerbation. Ongoing tobacc o use and chronic opiate therapy. He says today, he was feeling fine up until yesterday, started feeling poorly and then today became e xtremely short of breath and presented to the emergency room. He is interviewed on noninvasive venti lation. Unfortunately, he continues to smoke. Apparently, he was sent to the emergency room by his primary care physician. PAST MEDICAL HISTORY: 1. Remarkable for COPD. 2. Diastolic heart failure. 3. Chronic pain. 4. History of scoliosis with extensive rodding visible on his chest radiograph and multiple scars on his back. 5. Ongoing tobacco use. 6. History of partial small bowel obstruction in the past. SOCIAL HISTORY: He is not a pack a day smoker, nondrinker. ALLERGIES: He reports no drug allergies. FAMILY HISTORY: Negative for lung disease at an early age. REVIEW OF SYSTEMS: Otherwise negative. He denies hemoptysis, purulent sputum, pleurisy or chest mine n. Remainder of 12-point review of systems is negative. PHYSICAL EXAMINATION: GENERAL: He was still at the side of bed with BiPAP on emergency department. He apparently was plac ed for hypoxemia not for muscle fatigue. VITAL SIGNS: He is afebrile. Heart rate is 85, respiratory rate is 20, oximetry is 100%, blood pres sure 111/54. HEENT: Pupils are equal. Sclerae is anicteric. NECK: Supple appears older than his age. BACK: Remarkable for multiple scars along his spines. LUNGS: Remarkable for crackles bilaterally, that are faint. HEART: Regular rhythm, no S3. He does have a grade 2/6 systolic murmur. ABDOMEN: Soft and nontender. EXTREMITIES: Without asymmetry. LABORATORY AND X-RAY FINDINGS: White count 16.3, hemoglobin 12.0, platelets are in 171,000, 89 segs. Sodium 132, potassium 3.9, chloride 102, bicarb 21, BUN 11, creatinine 0.93. No blood gas was done . Chest radiograph shows diffuse increased interstitial markings this film was reviewed by me. IMPRESSION: Bilateral patchy infiltrates most likely secondary to infectious process given the time here in the flu season were seen. I doubt this is new onset congestive heart failure. PLAN: Continue antimicrobial therapy, noninvasive ventilation, will continue throughout the night. Nebulizer treatments will be ordered. Steroids will be ordered. Hopefully, we can remove BiPAP in t he morning. Critical care time was 30 minutes.
[2017-03-15] MEDS: Cefepime 2 GM, Syringe 2.5 ML in Sterile Water 10 ML SLOW IVP SCH ×2 (03:24→15:09)
[2017-03-15 04:32] LABS: #Lymphocytes 0.6 thou/uL (1.20-3.40); #Monocytes 0.3 thou/uL (0.11-0.59); #Neutrophils 12.8 thou/uL (1.40-6.50); %Basophils 0.1 % (0.0-1.0); %Lymphocytes 4.3 % (21.0-51.0); %Monocytes 2.1 % (0.0-10.0); %Neutrophils 93.5 % (42.0-75.0); Hemoglobin 10.6 g/dL (14.0-18.0); Mean Corpuscular HGB CONC 30.9 g/dL (32.0-36.0); Mean Corpuscular Hemoglobin 27.6 pg (27.0-31.0); Mean Corpuscular Volume 89.2 fl (80.0-94.0); Platelet Count 156 thou/uL (130-400); RBC Distribution Width 15.3 % (11.5-14.5); Red Blood Cell (RBC) Count 3.82 mill/uL (4.70-6.10); White Blood Cell (WBC) Count 13.7 thou/uL (4.8-10.8)
[2017-03-15 04:40] LABS: Lactic Acid 1.8 mmol/L (0.5-2.2)
[2017-03-15 04:47] LABS: Anion Gap 10 mmol/L (10-20); BUN (Urea Nitrogen) 12 mg/dL (8.9-20.6); Calc. Creatinine Clearance 158 mL/min (70-130); Calcium 8.5 mg/dL (7.8-10.44); Carbon Dioxide 23 mmol/L (22-29); Chloride 106 mmol/L (98-107); Estimated GFR-MDRD Greater than 90; Glucose 117 mg/dL (70-105); Potassium 3.8 mmol/L (3.5-5.1); Sodium 135 mmol/L (136-145)
[2017-03-15] MEDS: HYDROcodone/Acetaminophen 5/325 mg Tablet PO PRN (06:17)
[2017-03-15] MEDS: Enoxaparin Sodium 40 MG/0.4 ML SYRINGE SC SCH (07:48)
[2017-03-15] MEDS: Famotidine 20 MG TAB PO SCH ×2 (07:48→19:55)
[2017-03-15] MEDS: guaiFENesin ER 600 MG TAB PO SCH ×2 (07:48→19:55)
[2017-03-15] MEDS: Saccharomyces boulardii 250 MG CAP PO SCH (07:48)
--- NOTE | 2017-03-15 09:46 | PRG ---
DATE OF SERVICE: 03/15/2017 He was admitted last night with fever, cough, clear sputum. He is better this morning. PHYSICAL EXAMINATION: VITAL SIGNS: Sats are 91 in and 3 liters, temperature 98, blood pressure 120/61. CHEST: Chest reveals bilateral crackles and rhonchi. CARDIAC: Normal S1, S2. LABORATORY DATA: White count 13,000, hematocrit 10 and 30, platelet 156. Electrolytes are normal. X-ray shows diffuse interstitial markings. IMPRESSION: 1. Acute and chronic respiratory failure. 2. Severe kyphoscoliosis. 3. Recurrent pneumonia. PLAN: He is on Maxipime, steroids, neb treatments which I will continue. PT and supportive care. I will follow.
--- NOTE | 2017-03-15 10:46 | PDOC.PN ---
- Subjective Encounter Start Date: 03/15/17 Encounter Start Time: 07:30 -: old records requested/rev this morning he is off bipap, still requires oxygen, now he is asking for his home meds - Objective Resuscitation Status: Resuscitation Status FULL:Full Resuscitation MAR Reviewed: Yes Vital Signs & Weight: Vital Signs (12 hours) Temp Pulse Resp BP Pulse Ox 03/15/17 10:25 91 16 03/15/17 07:28 98.6 F 85 23 H 88 L 03/15/17 07:25 85 16 03/15/17 07:08 98.6 F 87 23 H 112/61 88 L 03/15/17 04:20 98.4 F 80 16 103/55 L 97 03/15/17 02:37 77 03/15/17 02:36 77 21 H 98 03/15/17 00:05 98.5 F 81 19 105/54 L 96 03/14/17 22:50 79 20 100 Weight Weight 185 lb 7 oz I&O: 03/14/17 03/15/17 03/16/17 06:59 06:59 06:59 Intake Total 200 Output Total 750 Balance -550 Result Diagrams: 03/15/17 03:18 03/15/17 03:18 EKG Reviewed by me: Yes (nsr) Phys Exam - Physical Examination Constitutional: NAD HEENT: PERRLA, moist MMs, sclera anicteric Neck: no JVD, supple coarse breath sound bilateral Cardiovascular: RRR, no significant murmur, no rub Gastrointestinal: soft, non-tender, no distention, positive bowel sounds Musculoskeletal: no edema, pulses present Neurological: non-focal, normal sensation, moves all 4 limbs Lymphatic: no nodes Psychiatric: normal affect Skin: no rash, normal turgor Dx/Plan (1) Acute respiratory failure with hypoxia Code(s): J96.01 - ACUTE RESPIRATORY FAILURE WITH HYPOXIA Status: Acute (2) Community acquired bacterial pneumonia Code(s): J15.9 - UNSPECIFIED BACTERIAL PNEUMONIA Status: Acute (3) Sepsis with acute organ dysfunction Code(s): A41.9 - SEPSIS, UNSPECIFIED ORGANISM; R65.20 - SEVERE SEPSIS WITHOUT SEPTIC SHOCK Status: Acute (4) Hypotension Status: Resolved (5) Chronic pain disorder Code(s): G89.4 - CHRONIC PAIN SYNDROME Status: Chronic (6) Scoliosis Status: Chronic (7) Tobacco abuse Code(s): Z72.0 - TOBACCO USE Status: Chronic - Plan cont current plan of care, continue antibiotics, PT/OT, respiratory therapy * will monitor in IMCU * titrate his need for oxygen * counselled to avoid smoking * continue solumedrol, cefepime, levaquin and respiratory therapy * pulmonary following * medication reviewed as below * symptomatic treatment * will restart his selected home meds later if stable. Review of Systems - Review of Systems Constitutional: negative: fever, chills, sweats, weakness, malaise, other Eyes: negative: Pain, Vision Change, Conjunctivae Inflammation, Eyelid Inflammation, Redness, Other ENT: negative: Ear Pain, Ear Discharge, Nose Pain, Nose Discharge, Nose Congestion, Mouth Pain, Mouth Swelling, Throat Pain, Throat Swelling, Other Respiratory: Cough, Shortness of Breath. negative: Dry, Hemoptysis, SOB with Excertion, Pleuritic Pain, Sputum, Wheezing Cardiovascular: negative: chest pain, palpitations, orthopnea, paroxysmal nocturnal dyspnea, edema, light headedness, other Gastrointestinal: negative: Nausea, Vomiting, Abdominal Pain, Diarrhea, Constipation, Melena, Hematochezia, Other Genitourinary: negative: Dysuria, Frequency, Incontinence, Hematuria, Retention , Other Skin: negative: Rash, Lesions, Wilfredo, Bruising, Other - Medications/Allergies Allergies/Adverse Reactions: Allergies Allergy/AdvReac Type Severity Reaction Status Date / Time No Known Drug Allergies Allergy Verified 03/14/17 19:54 Medications: Current Medications Acetaminophen (Tylenol) 650 mg PO Q4H PRN PRN Reason: Headache/Fever or Pain Hydrocodone Bitart/Acetaminophen ([place] 5/325) 1 tab PO Q4H PRN PRN Reason: Moderate Pain (4-6) Last Admin: 03/15/17 06:17 Dose: 1 tab Al Hydroxide/Mg Hydroxide (Maalox) 30 ml PO Q6H PRN PRN Reason: Heartburn or Indigestion Albuterol/Ipratropium (Duoneb) 3 ml NEB [id number] Last Admin: 03/15/17 10:25 Dose: 3 ml Artificial Tears (Tears Naturale) 0 drop EA EYE PRN PRN PRN Reason: Dry Eyes Enoxaparin Sodium (Lovenox) 40 mg SC 0900 [facility] Last Admin: 03/15/17 07:48 Dose: 40 mg Famotidine (Pepcid) 20 mg PO BID [facility] Last Admin: 03/15/17 07:48 Dose: 20 mg Guaifenesin (Robitussin Sf) 200 mg PO Q4H PRN PRN Reason: Cough Guaifenesin (Mucinex) 600 mg PO Q12HR [facility] Last Admin: 03/15/17 07:48 Dose: 600 mg Hydralazine HCl (Apresoline) 10 mg SLOW IVP Q4H PRN PRN Reason: Systolic BP > 180 Levofloxacin 500 mg/ Device 100 mls @ 100 mls/hr IVPB 1100 [facility] Cefepime HCl 2 gm/ Syringe 2.5 (ml/ Sterile Water) 12.5 mls @ 150 mls/hr SLOW IVP 0300,1500 [facility] Last Admin: 03/15/17 03:24 Dose: 12.5 mls Loperamide HCl (Imodium) 2 mg PO PRN PRN PRN Reason: Diarrhea/Loose Stools Loratadine (Claritin) 10 mg PO DAILYPRN PRN PRN Reason: Sinus Symptoms Magnesium Hydroxide (Milk Of Magnesium) 30 ml PO DAILYPRN PRN PRN Reason: Constipation Methylprednisolone Sodium Succinate (Solu-Medrol) 20 mg IVP Q8HR [facility] Last Admin: 03/15/17 06:13 Dose: 20 mg Mineral Oil/White Petrolatum (Eucerin Cream) 0 gm TOP BIDPRN PRN PRN Reason: Dry Skin Nicotine (Nicoderm Patch) 21 mg TD Q24HR [facility] Last Admin: 03/14/17 16:38 Dose: 21 mg Ondansetron HCl (Zofran Odt) 4 mg PO Q6H PRN PRN Reason: Nausea/Vomiting Ondansetron HCl (Zofran) 4 mg IVP Q6H PRN PRN Reason: Nausea/Vomiting Phenol (Chloraseptic [place] 180 Ml Bot) 0 ml PO PRN PRN PRN Reason: Sore Throat Saccharomyces Boulardii (Florastor) 250 mg PO DAILY [facility] Last Admin: 03/15/17 07:48 Dose: 250 mg Senna (Senokot) 2 tab PO HSPRN PRN PRN Reason: Constipation Sodium Chloride ([place] Nasal [place] 0.65%) 0 ml EA NARE QIDPRN PRN PRN Reason: Nasal Congestion Zolpidem Tartrate (Ambien) 5 mg PO HSPRN PRN PRN Reason: Insomnia
[2017-03-15] MEDS: HYDROcodone/Acetaminophen 10/325 mg Tablet PO PRN ×3 (11:38→22:36)
[2017-03-15] MEDS: Gabapentin 300 MG CAP PO SCH ×2 (15:08→19:55)
[2017-03-15] MEDS: Nicotine 21 MG PATCH TD SCH (15:08)
[2017-03-16] MEDS: HYDROcodone/Acetaminophen 10/325 mg Tablet PO PRN ×4 (03:27→22:55)
[2017-03-16] MEDS: Cefepime 2 GM, Syringe 2.5 ML in Sterile Water 10 ML SLOW IVP SCH (03:28)
[2017-03-16] MEDS: Enoxaparin Sodium 40 MG/0.4 ML SYRINGE SC SCH (08:34)
[2017-03-16] MEDS: Gabapentin 300 MG CAP PO SCH ×3 (08:35→20:45)
[2017-03-16] MEDS: guaiFENesin ER 600 MG TAB PO SCH ×2 (08:35→20:45)
[2017-03-16] MEDS: Saccharomyces boulardii 250 MG CAP PO SCH (08:35)
[2017-03-16] MEDS: Famotidine 20 MG TAB PO SCH ×2 (08:35→20:45)
[2017-03-16 08:46] LABS: #Lymphocytes 0.5 thou/uL (1.20-3.40); #Monocytes 0.2 thou/uL (0.11-0.59); #Neutrophils 13.3 thou/uL (1.40-6.50); %Eosinophils 0.1 % (0.0-10.0); %Lymphocytes 3.6 % (21.0-51.0); %Monocytes 1.6 % (0.0-10.0); %Neutrophils 94.6 % (42.0-75.0); Hemoglobin 10.9 g/dL (14.0-18.0); Mean Corpuscular Hemoglobin 26.8 pg (27.0-31.0); Mean Corpuscular Volume 89.3 fl (80.0-94.0); Mean Platelet Volume 8.6 fL (7.4-10.4); Platelet Count 186 thou/uL (130-400); RBC Distribution Width 15.5 % (11.5-14.5); Red Blood Cell (RBC) Count 4.05 mill/uL (4.70-6.10)
[2017-03-16 08:54] LABS: Anion Gap 14 mmol/L (10-20); BUN (Urea Nitrogen) 15 mg/dL (8.9-20.6); Calc. Creatinine Clearance 164 mL/min (70-130); Calcium 8.9 mg/dL (7.8-10.44); Carbon Dioxide 21 mmol/L (22-29); Chloride 107 mmol/L (98-107); Estimated GFR-MDRD Greater than 90; Glucose 113 mg/dL (70-105); Potassium 3.9 mmol/L (3.5-5.1); Sodium 138 mmol/L (136-145)
--- NOTE | 2017-03-16 09:09 | RAD ---
PORTABLE CHEST 1 VIEW: Date: 03/16/17 Time: 0852 hours HISTORY: Pneumonia. FINDINGS/IMPRESSION: Comparison made with exam of 03/14/17. The heart size is enlarged. Patchy infiltrates in the lung giraldo are again seen bilaterally. No pneu mothoraces or large effusions are identified. Postop changes of metallic hardware in the thoracic spi ne are redemonstrated. POS: [facility]
--- NOTE | 2017-03-16 09:26 | PRG ---
DATE OF SERVICE: 03/16/2017 This morning, awake, alert, responsive. He is better, less short of breath. PHYSICAL EXAMINATION: VITAL SIGNS: Sats 91 on 4 liters, respirations 18, temperature 97, blood pressure 120/77. CHEST: Chest reveals bilateral crackles. CARDIAC: Normal S1, S2. ABDOMEN: Soft, no masses. IMPRESSION: 1. Bilateral bronchopneumonia. 2. Chronic pain. PLAN: He can be switched over to oral medication, PT, supportive care. He could be transferred out of the [facility].
--- NOTE | 2017-03-16 10:23 | PDOC.PN ---
- Subjective Encounter Start Date: 03/16/17 Encounter Start Time: 07:30 Patient seen and examined. No new complaints. No overnight events did not require any bipap use, no fever, doing well - Objective Resuscitation Status: Resuscitation Status FULL:Full Resuscitation MAR Reviewed: Yes Vital Signs & Weight: Vital Signs (12 hours) Temp Pulse Resp BP Pulse Ox 03/16/17 07:54 97.8 F 76 18 122/71 92 L 03/16/17 07:53 98.8 F 79 19 95 03/16/17 07:24 97 03/16/17 07:22 79 19 97 03/16/17 04:00 98.8 F 85 18 114/70 93 L 03/16/17 02:16 85 16 91 L 03/16/17 00:00 98.6 F 94 18 114/69 91 L Weight Weight 185 lb 7 oz I&O: 03/15/17 03/16/17 03/17/17 06:59 06:59 06:59 Intake Total 200 960 Output Total 750 1500 Balance -550 -540 Result Diagrams: 03/16/17 08:21 03/16/17 08:21 Phys Exam - Physical Examination Constitutional: NAD HEENT: PERRLA, moist MMs, sclera anicteric Neck: no JVD, supple Respiratory: no wheezing, no rales, no rhonchi Cardiovascular: RRR, no significant murmur, no rub Gastrointestinal: soft, non-tender, no distention, positive bowel sounds Musculoskeletal: no edema, pulses present Neurological: non-focal, normal sensation, moves all 4 limbs Psychiatric: normal affect, A&O x 3 Skin: no rash, normal turgor Dx/Plan (1) Acute respiratory failure with hypoxia Code(s): J96.01 - ACUTE RESPIRATORY FAILURE WITH HYPOXIA Status: Acute (2) Community acquired bacterial pneumonia Code(s): J15.9 - UNSPECIFIED BACTERIAL PNEUMONIA Status: Acute (3) Sepsis with acute organ dysfunction Code(s): A41.9 - SEPSIS, UNSPECIFIED ORGANISM; R65.20 - SEVERE SEPSIS WITHOUT SEPTIC SHOCK Status: Acute (4) Hypotension Status: Resolved (5) Chronic pain disorder Code(s): G89.4 - CHRONIC PAIN SYNDROME Status: Chronic (6) Scoliosis Status: Chronic (7) Tobacco abuse Code(s): Z72.0 - TOBACCO USE Status: Chronic - Plan cont current plan of care, continue antibiotics, respiratory therapy * transfer to medical * DC Cefepime * change levaquin to PO * change solumedrol to po prednisone * wean off oxygen as tolerated * ambulate * medication reviewed as below * symptomatic treatment. Review of Systems - Review of Systems Constitutional: negative: fever, chills, sweats, weakness, malaise, other ENT: negative: Ear Pain, Ear Discharge, Nose Pain, Nose Discharge, Nose Congestion, Mouth Pain, Mouth Swelling, Throat Pain, Throat Swelling, Other Respiratory: negative: Cough, Dry, Shortness of Breath, Hemoptysis, SOB with Excertion, Pleuritic Pain, Sputum, Wheezing Cardiovascular: negative: chest pain, palpitations, orthopnea, paroxysmal nocturnal dyspnea, edema, light headedness, other Gastrointestinal: negative: Nausea, Vomiting, Abdominal Pain, Diarrhea, Constipation, Melena, Hematochezia, Other Genitourinary: negative: Dysuria, Frequency, Incontinence, Hematuria, Retention , Other Musculoskeletal: negative: Neck Pain, Shoulder Pain, Arm Pain, Back Pain, Hand Pain, Leg Pain, Foot Pain, Other - Medications/Allergies Allergies/Adverse Reactions: Allergies Allergy/AdvReac Type Severity Reaction Status Date / Time No Known Drug Allergies Allergy Verified 03/14/17 19:54 Medications: Current Medications Acetaminophen (Tylenol) 650 mg PO Q4H PRN PRN Reason: Headache/Fever or Pain Hydrocodone Bitart/Acetaminophen ([place] 5/325) 1 tab PO Q4H PRN PRN Reason: Moderate Pain (4-6) Last Admin: 03/15/17 06:17 Dose: 1 tab Hydrocodone Bitart/Acetaminophen ([place] 10/325) 1 tab PO Q4H PRN PRN Reason: Pain Last Admin: 03/16/17 08:40 Dose: 1 tab Al Hydroxide/Mg Hydroxide (Maalox) 30 ml PO Q6H PRN PRN Reason: Heartburn or Indigestion Albuterol/Ipratropium (Duoneb) 3 ml NEB [id number] CONNIE Last Admin: 03/16/17 07:22 Dose: 3 ml Artificial Tears (Tears Naturale) 0 drop EA EYE PRN PRN PRN Reason: Dry Eyes Carisoprodol (Soma) 350 mg PO QID PRN PRN Reason: Moderate to Severe Pain (6-10) Last Admin: 03/16/17 08:40 Dose: 350 mg Enoxaparin Sodium (Lovenox) 40 mg SC 0900 [facility] Last Admin: 03/16/17 08:34 Dose: 40 mg Famotidine (Pepcid) 20 mg PO BID [facility] Last Admin: 03/16/17 08:35 Dose: 20 mg Gabapentin (Neurontin) 900 mg PO TID [facility] Last Admin: 03/16/17 08:35 Dose: 900 mg Guaifenesin (Robitussin Sf) 200 mg PO Q4H PRN PRN Reason: Cough Guaifenesin (Mucinex) 600 mg PO Q12HR [facility] Last Admin: 03/16/17 08:35 Dose: 600 mg Hydralazine HCl (Apresoline) 10 mg SLOW IVP Q4H PRN PRN Reason: Systolic BP > 180 Levofloxacin (Levaquin) 500 mg PO 0900 [facility] Loperamide HCl (Imodium) 2 mg PO PRN PRN PRN Reason: Diarrhea/Loose Stools Loratadine (Claritin) 10 mg PO DAILYPRN PRN PRN Reason: Sinus Symptoms Magnesium Hydroxide (Milk Of Magnesium) 30 ml PO DAILYPRN PRN PRN Reason: Constipation Mineral Oil/White Petrolatum (Eucerin Cream) 0 gm TOP BIDPRN PRN PRN Reason: Dry Skin Nicotine (Nicoderm Patch) 21 mg TD Q24HR [facility] Last Admin: 03/15/17 15:08 Dose: 21 mg Ondansetron HCl (Zofran Odt) 4 mg PO Q6H PRN PRN Reason: Nausea/Vomiting Ondansetron HCl (Zofran) 4 mg IVP Q6H PRN PRN Reason: Nausea/Vomiting Phenol (Chloraseptic [place] 180 Ml Bot) 0 ml PO PRN PRN PRN Reason: Sore Throat Prednisone (Prednisone) 20 mg PO QA-[facility] Saccharomyces Boulardii (Florastor) 250 mg PO DAILY [facility] Last Admin: 03/16/17 08:35 Dose: 250 mg Senna (Senokot) 2 tab PO HSPRN PRN PRN Reason: Constipation Sodium Chloride ([place] Nasal [place] 0.65%) 0 ml EA NARE QIDPRN PRN PRN Reason: Nasal Congestion Sodium Chloride (Flush - Normal Saline) 10 ml IVF Q12HR [facility] Last Admin: 03/15/17 19:54 Dose: 10 ml Sodium Chloride (Flush - Normal Saline) 10 ml IVF PRN PRN PRN Reason: Saline Flush Zolpidem Tartrate (Ambien) 5 mg PO HSPRN PRN PRN Reason: Insomnia
[2017-03-16] MEDS: Nicotine 21 MG PATCH TD SCH (14:39)
[2017-03-17] MEDS: Famotidine 20 MG TAB PO SCH ×2 (07:38→20:40)
[2017-03-17] MEDS: Gabapentin 300 MG CAP PO SCH ×3 (07:38→20:40)
[2017-03-17] MEDS: guaiFENesin ER 600 MG TAB PO SCH ×2 (07:38→20:40)
[2017-03-17] MEDS: Saccharomyces boulardii 250 MG CAP PO SCH (07:38)
[2017-03-17] MEDS: predniSONE 20 MG TAB PO SCH (07:38)
[2017-03-17] MEDS: Enoxaparin Sodium 40 MG/0.4 ML SYRINGE SC SCH (07:39)
[2017-03-17 08:38] LABS: #Eosinphils 0.6 thou/uL (0.0-0.7); #Lymphocytes 1.5 thou/uL (1.20-3.40); #Monocytes 0.5 thou/uL (0.11-0.59); #Neutrophils 7.3 thou/uL (1.40-6.50); %Basophils 0.2 % (0.0-1.0); %Eosinophils 6.1 % (0.0-10.0); %Lymphocytes 14.8 % (21.0-51.0); %Monocytes 4.8 % (0.0-10.0); %Neutrophils 74.1 % (42.0-75.0); Hemoglobin 10.6 g/dL (14.0-18.0); Mean Corpuscular HGB CONC 30.9 g/dL (32.0-36.0); Mean Corpuscular Hemoglobin 27.4 pg (27.0-31.0); Mean Corpuscular Volume 88.7 fl (80.0-94.0); Mean Platelet Volume 8.3 fL (7.4-10.4); Platelet Count 153 thou/uL (130-400); RBC Distribution Width 15.3 % (11.5-14.5); Red Blood Cell (RBC) Count 3.86 mill/uL (4.70-6.10); White Blood Cell (WBC) Count 9.8 thou/uL (4.8-10.8)
--- NOTE | 2017-03-17 09:10 | PRG ---
DATE OF SERVICE: 03/17/2017 This is a 42-year-old gentleman awake, alert, responsive. PHYSICAL EXAMINATION: VITAL SIGNS: His sats are 100% on 2 liters, temperature 98, pulse 97, respiratory rate 16, blood pre ssure 127/80. He is better, less cough, less shortness of breath. White count 9000, H&H 10 and 38, platelet count is normal. Electrolytes are normal. His chest x-ray shows his previous hardware, slight increase in cephalization bilaterally. IMPRESSION: 1. Bilateral bronchopneumonia. 2. Chronic pain. PLAN: PT and supportive care, oral antibiotics. He probably can be discharged home in the next day o r two.
--- NOTE | 2017-03-17 09:34 | PDOC.PN ---
- Subjective Encounter Start Date: 03/17/17 Encounter Start Time: 08:40 Patient seen and examined. No new complaints. No overnight events - Objective Resuscitation Status: Resuscitation Status FULL:Full Resuscitation MAR Reviewed: Yes Vital Signs & Weight: Vital Signs (12 hours) Temp Pulse Resp BP Pulse Ox 03/17/17 08:00 98.3 F 76 16 93 L 03/17/17 07:43 98.3 F 76 16 127/78 100 03/17/17 07:07 89 L 03/17/17 06:57 89 20 89 L 03/17/17 04:21 98.1 F 79 18 107/72 97 03/17/17 01:57 84 16 98 03/16/17 22:16 98 16 97 Weight Weight 185 lb 7 oz I&O: 03/16/17 03/17/17 03/18/17 06:59 06:59 06:59 Intake Total 960 840 240 Output Total 1500 400 500 Balance -540 440 -260 Result Diagrams: 03/17/17 08:16 03/16/17 08:21 Phys Exam - Physical Examination Constitutional: NAD HEENT: PERRLA, moist MMs, sclera anicteric Neck: no JVD, supple Respiratory: no wheezing, no rales, no rhonchi Cardiovascular: RRR, no significant murmur, no rub Gastrointestinal: soft, non-tender, no distention, positive bowel sounds Musculoskeletal: no edema, pulses present Neurological: non-focal, normal sensation, moves all 4 limbs Psychiatric: normal affect, A&O x 3 Skin: no rash, normal turgor Dx/Plan (1) Acute respiratory failure with hypoxia Code(s): J96.01 - ACUTE RESPIRATORY FAILURE WITH HYPOXIA Status: Acute (2) Community acquired bacterial pneumonia Code(s): J15.9 - UNSPECIFIED BACTERIAL PNEUMONIA Status: Acute (3) Sepsis with acute organ dysfunction Code(s): A41.9 - SEPSIS, UNSPECIFIED ORGANISM; R65.20 - SEVERE SEPSIS WITHOUT SEPTIC SHOCK Status: Acute (4) Hypotension Status: Resolved (5) Chronic pain disorder Code(s): G89.4 - CHRONIC PAIN SYNDROME Status: Chronic (6) Scoliosis Status: Chronic (7) Tobacco abuse Code(s): Z72.0 - TOBACCO USE Status: Chronic - Plan cont current plan of care, continue antibiotics, respiratory therapy * today will try to stop oxygen if not needed, or wean off to keep spo2 92% * CBC is checked today * medication reviewed as below * symptomatic treatment * continue levaquin and oral prednisone. Review of Systems - Review of Systems ENT: negative: Ear Pain, Ear Discharge, Nose Pain, Nose Discharge, Nose Congestion, Mouth Pain, Mouth Swelling, Throat Pain, Throat Swelling, Other Respiratory: negative: Cough, Dry, Shortness of Breath, Hemoptysis, SOB with Excertion, Pleuritic Pain, Sputum, Wheezing Cardiovascular: negative: chest pain, palpitations, orthopnea, paroxysmal nocturnal dyspnea, edema, light headedness, other Gastrointestinal: negative: Nausea, Vomiting, Abdominal Pain, Diarrhea, Constipation, Melena, Hematochezia, Other Genitourinary: negative: Dysuria, Frequency, Incontinence, Hematuria, Retention , Other Musculoskeletal: negative: Neck Pain, Shoulder Pain, Arm Pain, Back Pain, Hand Pain, Leg Pain, Foot Pain, Other - Medications/Allergies Allergies/Adverse Reactions: Allergies Allergy/AdvReac Type Severity Reaction Status Date / Time No Known Drug Allergies Allergy Verified 03/14/17 19:54 Medications: Current Medications Acetaminophen (Tylenol) 650 mg PO Q4H PRN PRN Reason: Headache/Fever or Pain Hydrocodone Bitart/Acetaminophen ([place] 5/325) 1 tab PO Q4H PRN PRN Reason: Moderate Pain (4-6) Last Admin: 03/15/17 06:17 Dose: 1 tab Hydrocodone Bitart/Acetaminophen ([place] 10/325) 1 tab PO Q4H PRN PRN Reason: Pain Last Admin: 03/16/17 22:55 Dose: 1 tab Al Hydroxide/Mg Hydroxide (Maalox) 30 ml PO Q6H PRN PRN Reason: Heartburn or Indigestion Albuterol/Ipratropium (Duoneb) 3 ml NEB [id number] Last Admin: 03/17/17 06:57 Dose: 3 ml Artificial Tears (Tears Naturale) 0 drop EA EYE PRN PRN PRN Reason: Dry Eyes Carisoprodol (Soma) 350 mg PO QID PRN PRN Reason: Moderate to Severe Pain (6-10) Last Admin: 03/17/17 07:43 Dose: 350 mg Enoxaparin Sodium (Lovenox) 40 mg SC 0900 [facility] Last Admin: 03/17/17 07:39 Dose: 40 mg Famotidine (Pepcid) 20 mg PO BID [facility] Last Admin: 03/17/17 07:38 Dose: 20 mg Gabapentin (Neurontin) 900 mg PO TID [facility] Last Admin: 03/17/17 07:38 Dose: 900 mg Guaifenesin (Robitussin Sf) 200 mg PO Q4H PRN PRN Reason: Cough Guaifenesin (Mucinex) 600 mg PO Q12HR [facility] Last Admin: 03/17/17 07:38 Dose: 600 mg Hydralazine HCl (Apresoline) 10 mg SLOW IVP Q4H PRN PRN Reason: Systolic BP > 180 Levofloxacin (Levaquin) 500 mg PO 0900 [facility] Last Admin: 03/17/17 07:38 Dose: 500 mg Loperamide HCl (Imodium) 2 mg PO PRN PRN PRN Reason: Diarrhea/Loose Stools Loratadine (Claritin) 10 mg PO DAILYPRN PRN PRN Reason: Sinus Symptoms Magnesium Hydroxide (Milk Of Magnesium) 30 ml PO DAILYPRN PRN PRN Reason: Constipation Mineral Oil/White Petrolatum (Eucerin Cream) 0 gm TOP BIDPRN PRN PRN Reason: Dry Skin Nicotine (Nicoderm Patch) 21 mg TD Q24HR [facility] Last Admin: 03/16/17 14:39 Dose: 21 mg Ondansetron HCl (Zofran Odt) 4 mg PO Q6H PRN PRN Reason: Nausea/Vomiting Ondansetron HCl (Zofran) 4 mg IVP Q6H PRN PRN Reason: Nausea/Vomiting Phenol (Chloraseptic [place] 180 Ml Bot) 0 ml PO PRN PRN PRN Reason: Sore Throat Prednisone (Prednisone) 20 mg PO QAM-[facility] Last Admin: 03/17/17 07:38 Dose: 20 mg Saccharomyces Boulardii (Florastor) 250 mg PO DAILY [facility] Last Admin: 03/17/17 07:38 Dose: 250 mg Senna (Senokot) 2 tab PO HSPRN PRN PRN Reason: Constipation Sodium Chloride ([place] Nasal [place] 0.65%) 0 ml EA NARE QIDPRN PRN PRN Reason: Nasal Congestion Sodium Chloride (Flush - Normal Saline) 10 ml IVF Q12HR [facility] Last Admin: 03/17/17 07:39 Dose: 10 ml Sodium Chloride (Flush - Normal Saline) 10 ml IVF PRN PRN PRN Reason: Saline Flush Zolpidem Tartrate (Ambien) 5 mg PO HSPRN PRN PRN Reason: Insomnia
[2017-03-17] MEDS: HYDROcodone/Acetaminophen 10/325 mg Tablet PO PRN ×3 (10:10→20:40)
[2017-03-17] MEDS: Nicotine 21 MG PATCH TD SCH (13:37)
[2017-03-18] MEDS: Saccharomyces boulardii 250 MG CAP PO SCH (08:09)
[2017-03-18] MEDS: Famotidine 20 MG TAB PO SCH ×2 (08:09→21:10)
[2017-03-18] MEDS: HYDROcodone/Acetaminophen 10/325 mg Tablet PO PRN ×3 (08:09→19:15)
[2017-03-18] MEDS: predniSONE 20 MG TAB PO SCH (08:09)
[2017-03-18] MEDS: Gabapentin 300 MG CAP PO SCH ×3 (08:09→21:10)
[2017-03-18] MEDS: guaiFENesin ER 600 MG TAB PO SCH ×2 (08:10→21:10)
[2017-03-18] MEDS: Enoxaparin Sodium 40 MG/0.4 ML SYRINGE SC SCH (08:11)
--- NOTE | 2017-03-18 13:26 | PRG ---
DATE OF SERVICE: 03/18/2017 SUBJECTIVE: [place] this morning is better, less short of breath. He is walking. OBJECTIVE: VITAL SIGNS: Sats are 98 on 2 liters, temperature 98, blood pressure 129/77. CHEST: Decreased breath sounds, no wheezing. CARDIAC: Normal S1, S2. ABDOMEN: Soft, no masses. IMPRESSION: Pneumonia, respiratory failure. PLAN: He did not need any more noninvasive ventilation tonight. X-ray was ordered. If this improve s, he can probably be discharged home.
--- NOTE | 2017-03-18 13:26 | RAD ---
PA AND LATERAL CHEST: Date: 03/18/17 HISTORY: Pneumonia. COMPARISON: 01/24/17. FINDINGS: There are postsurgical changes of the thoracolumbar spine with posterior rods and pedicular screws ag ain present. Right convex curvature of the thoracic spine is present. There is mild increase in inter stitial densities bilaterally, which could be related to either an element of pulmonary edema or infe ctious process. No consolidation or pleural fluid is seen. There is atelectasis at the left lung base . Cardiac silhouette is magnified by projection. There is gaseous distention of loops of bowel in the upper abdomen. IMPRESSION: Mild prominence of the interstitial markings bilaterally compared to prior study which may be related to an element of pulmonary edema or infectious process. Follow-up evaluation is recommended. POS: LETICIA
[2017-03-18] MEDS: Nicotine 21 MG PATCH TD SCH (14:24)
--- NOTE | 2017-03-18 21:53 | PDOC.PN ---
- Subjective Encounter Start Date: 03/18/17 Encounter Start Time: 14:00 Patient seen and examined. No new complaints. No overnight events. Required NIPPV last night - Objective Resuscitation Status: Resuscitation Status FULL:Full Resuscitation MAR Reviewed: Yes Vital Signs & Weight: Vital Signs (12 hours) Temp Pulse Resp BP BP Pulse Ox 03/18/17 19:31 97.6 F 94 20 119/77 92 L 03/18/17 19:02 95 16 96 03/18/17 16:58 97.6 F 93 20 96/63 90 L 03/18/17 14:00 99 16 98 03/18/17 11:37 98.3 F 85 20 121/72 97 03/18/17 10:16 76 16 98 Weight Weight 185 lb 7 oz I&O: 03/17/17 03/18/17 03/19/17 06:59 06:59 06:59 Intake Total 840 1320 Output Total 400 1500 Balance 440 -180 Result Diagrams: 03/17/17 08:16 03/16/17 08:21 Phys Exam - Physical Examination Constitutional: NAD Respiratory: no wheezing Scat rhonchi/rales at bases Cardiovascular: RRR, no rub Gastrointestinal: soft, non-tender, positive bowel sounds Musculoskeletal: no edema Dx/Plan - Plan DVT proph w/lovenox, DVT proph w/SCDs IMPRESSION AND PLAN: 1. Acute hypoxic respiratory failure 2. Sepsis with acute organ dysfunction due to Pneumonia ?Pneumococcal 3. Chronic pain syndrome 4. Tobacco dep - Counselled. 5. Other issues per H&P PLAN: * Cont Atbx * Pulm following * Cont Nebs * DC Planning * Cont other meds as below Review of Systems - Review of Systems Cardiovascular: negative: chest pain, palpitations, orthopnea, paroxysmal nocturnal dyspnea, edema, light headedness Gastrointestinal: negative: Nausea, Vomiting, Abdominal Pain, Diarrhea, Constipation, Melena, Hematochezia - Medications/Allergies Allergies/Adverse Reactions: Allergies Allergy/AdvReac Type Severity Reaction Status Date / Time No Known Drug Allergies Allergy Verified 03/14/17 19:54 Medications: Current Medications Acetaminophen (Tylenol) 650 mg PO Q4H PRN PRN Reason: Headache/Fever or Pain Hydrocodone Bitart/Acetaminophen ([place] 5/325) 1 tab PO Q4H PRN PRN Reason: Moderate Pain (4-6) Last Admin: 03/15/17 06:17 Dose: 1 tab Hydrocodone Bitart/Acetaminophen ([place] 10/325) 1 tab PO Q4H PRN PRN Reason: Pain Last Admin: 03/18/17 19:15 Dose: 1 tab Al Hydroxide/Mg Hydroxide (Maalox) 30 ml PO Q6H PRN PRN Reason: Heartburn or Indigestion Albuterol/Ipratropium (Duoneb) 3 ml NEB [id number] [facility] Last Admin: 03/18/17 19:02 Dose: 3 ml Artificial Tears (Tears Naturale) 0 drop EA EYE PRN PRN PRN Reason: Dry Eyes Carisoprodol (Soma) 350 mg PO QID PRN PRN Reason: Moderate to Severe Pain (6-10) Last Admin: 03/18/17 21:10 Dose: 350 mg Enoxaparin Sodium (Lovenox) 40 mg SC 0900 [facility] Last Admin: 03/18/17 08:11 Dose: 40 mg Famotidine (Pepcid) 20 mg PO BID [facility] Last Admin: 03/18/17 21:10 Dose: 20 mg Gabapentin (Neurontin) 900 mg PO TID [facility] Last Admin: 03/18/17 21:10 Dose: 900 mg Guaifenesin (Robitussin Sf) 200 mg PO Q4H PRN PRN Reason: Cough Guaifenesin (Mucinex) 600 mg PO Q12HR [facility] Last Admin: 03/18/17 21:10 Dose: 600 mg Hydralazine HCl (Apresoline) 10 mg SLOW IVP Q4H PRN PRN Reason: Systolic BP > 180 Levofloxacin (Levaquin) 500 mg PO 0900 [facility] Last Admin: 03/18/17 08:09 Dose: 500 mg Loperamide HCl (Imodium) 2 mg PO PRN PRN PRN Reason: Diarrhea/Loose Stools Loratadine (Claritin) 10 mg PO DAILYPRN PRN PRN Reason: Sinus Symptoms Magnesium Hydroxide (Milk Of Magnesium) 30 ml PO DAILYPRN PRN PRN Reason: Constipation Mineral Oil/White Petrolatum (Eucerin Cream) 0 gm TOP BIDPRN PRN PRN Reason: Dry Skin Nicotine (Nicoderm Patch) 21 mg TD Q24HR [facility] Last Admin: 03/18/17 14:24 Dose: 21 mg Ondansetron HCl (Zofran Odt) 4 mg PO Q6H PRN PRN Reason: Nausea/Vomiting Ondansetron HCl (Zofran) 4 mg IVP Q6H PRN PRN Reason: Nausea/Vomiting Phenol (Chloraseptic [place] 180 Ml Bot) 0 ml PO PRN PRN PRN Reason: Sore Throat Prednisone (Prednisone) 20 mg PO QAM-[facility] Last Admin: 03/18/17 08:09 Dose: 20 mg Saccharomyces Boulardii (Florastor) 250 mg PO DAILY [facility] Last Admin: 03/18/17 08:09 Dose: 250 mg Senna (Senokot) 2 tab PO HSPRN PRN PRN Reason: Constipation Sodium Chloride ([place] Nasal [place] 0.65%) 0 ml EA NARE QIDPRN PRN PRN Reason: Nasal Congestion Sodium Chloride (Flush - Normal Saline) 10 ml IVF Q12HR [facility] Last Admin: 03/18/17 21:11 Dose: 10 ml Sodium Chloride (Flush - Normal Saline) 10 ml IVF PRN PRN PRN Reason: Saline Flush Zolpidem Tartrate (Ambien) 5 mg PO HSPRN PRN PRN Reason: Insomnia
[2017-03-19] MEDS: HYDROcodone/Acetaminophen 10/325 mg Tablet PO PRN ×3 (00:42→11:45)
[2017-03-19] MEDS: predniSONE 20 MG TAB PO SCH (08:00)
[2017-03-19] MEDS: Saccharomyces boulardii 250 MG CAP PO SCH (08:00)
[2017-03-19] MEDS: Gabapentin 300 MG CAP PO SCH ×2 (08:00→14:30)
[2017-03-19] MEDS: Famotidine 20 MG TAB PO SCH (08:00)
[2017-03-19] MEDS: guaiFENesin ER 600 MG TAB PO SCH (08:01)
[2017-03-19 08:58] VITALS: BP 114/68; TEMP 97.6
[2017-03-19] MEDS ORDERED: Furosemide 20 MG/2 ML VIAL SLOW IVP SCH (10:45)
--- NOTE | 2017-03-19 13:24 | PRG ---
DATE OF SERVICE: 03/19/2017 SUBJECTIVE: This morning, he is better. Less short of breath. OBJECTIVE: VITAL SIGNS: Sats are 98% on room air, pulse 88, temperature 97, respiratory rate 15, blood pressure 140/58. CHEST: Reveals no wheezing or crackles. CARDIAC: Normal S1-S2. No gallops. ABDOMEN: Soft, no masses. IMPRESSION: Pneumonia, interstitial lung disease, possibly diastolic dysfunction. PLAN: One dose of Lasix, discharged home on a rescue inhaler. Keep him on antibiotics and steroids. Follow up with his primary care physician.
[2017-03-19] MEDS: Nicotine 21 MG PATCH TD SCH (14:31)
--- NOTE | 2017-03-19 17:08 | DIS ---
DATE OF DISCHARGE: 03/19/2017 DISCHARGE DISPOSITION: Home. FOLLOWUP: Follow up with primary care physician, Dr. Mitchell in one week. The patient was seen and examined on the day of discharge. Denies any new complaints. ALLERGIES: No known drug allergies. DISCHARGE MEDICATIONS: 1. Levaquin 500 mg daily. 2. Pepcid 20 mg b.i.d. on prednisone taper. 3. Prednisone taper. 4. Soma 350 mg 4 times a day. 5. Lasix 20 mg b.i.d. 6. Mucinex 600 mg b.i.d. for 10 days. 7. [place] as needed. 8. Potassium chloride 20 mEq b.i.d. INPATIENT CONSULTANTS: Pulmonary, Dr. Camejo. BRIEF HOSPITAL COURSE: Patient is a 42-year-old male with chronic pain syndrome, ongoing tobacco abu se, presented to the hospital on 03/14/2017 with shortness of breath. His workup was consistent with acute hypoxic respiratory failure secondary to pneumonia. Chest x-ray on admission showed bibasilar pneumonia. He was admitted to the Intermediate Care Unit for noninvasive positive pressure ventilat ion. He was also placed on steroids, oxygen, nebulizer treatment with a Critical Care consult. Plea se refer to the history and physical for further details. The patient showed good improvement with the above measures. He was later transferred to the medical floor. He has been cleared by Pulmonary for discharge. FINAL DIAGNOSES: 1. Acute hypoxic respiratory failure. 2. Sepsis with acute organ dysfunction secondary to pneumonia, suspected pneumococcus. 3. Ongoing tobacco abuse. 4. Chronic pain syndrome. Plan of care was discussed with the patient in detail. He stated understanding. Tobacco cessation was emphasized.
== END 2017-03-19 17:24 | disposition home health service (06) | DRG 871 ==
LOC: ERS 09:35 → ERHOLD 12:55 → IMCU/EMU 19:24 → T4-B 03-16 14:47
PROVIDERS: ADMIT Internal Medicine; ATTEND Internal Medicine
DX: A41.9 Sepsis, unspecified organism (principal); J96.01 Acute respiratory failure with hypoxia; L89.151 Pressure ulcer of sacral region, stage 1; J13 Pneumonia due to Streptococcus pneumoniae; E87.2 Acidosis; E44.1 Mild protein-calorie malnutrition; M41.9 Scoliosis, unspecified; I50.30 Unspecified diastolic (congestive) heart failure; F17.210 Nicotine dependence, cigarettes, uncomplicated; G89.4 Chronic pain syndrome; R65.20 Severe sepsis without septic shock
CPT/HCPCS: 36415; 71045; 71046; 80048; 80053; 81003; 82550; 82553; 83605; 83880; 84484; 85025; 87040; 87086; 87804; 90471; 90682; 94640; 94660; 96361; 96365; 96367; 96375; A4216; G0008; G8978-GP-CM; G8979-GP-CI; J0692; J1650; J1940; J1956; J2543; J2920; J3010; J3370; J7050; J7506; J7620; Q2036

== ENCOUNTER 2017-09-14 22:27 | Emergency (ER) | payer MEDICARE, MEDICAID ==
[2017-09-14] MEDS ORDERED: Furosemide 40 MG TAB ONE (22:50)
== END 2017-09-14 22:56 | disposition home or self-care (01) ==
LOC: ERS 22:27
DX: R60.0 Localized edema (principal); I50.9 Heart failure, unspecified; F17.210 Nicotine dependence, cigarettes, uncomplicated; G89.29 Other chronic pain; Z79.899 Other long term (current) drug therapy
CPT/HCPCS: 99406

== ENCOUNTER 2018-04-24 17:49 | Emergency (ER) | payer MEDICAID, MEDICARE ==
[2018-04-24 18:10] LABS: #Basophils 0.1 thou/uL (0.0-0.2); #Eosinphils 0.1 thou/uL (0.0-0.7); #Lymphocytes 1.8 thou/uL (1.20-3.40); #Monocytes 0.8 thou/uL (0.11-0.59); #Neutrophils 8.5 thou/uL (1.40-6.50); %Basophils 0.5 % (0.0-1.0); %Eosinophils 1.2 % (0.0-10.0); %Lymphocytes 15.7 % (21.0-51.0); %Monocytes 6.9 % (0.0-10.0); %Neutrophils 75.6 % (42.0-75.0); Hemoglobin 9.3 g/dL (14.0-18.0); Mean Corpuscular HGB CONC 30.6 g/dL (32.0-36.0); Mean Corpuscular Hemoglobin 26.4 pg (27.0-31.0); Mean Corpuscular Volume 86.4 fL (78.0-98.0); Mean Platelet Volume 6.7 fL (7.4-10.4); Platelet Count 284 thou/uL (130-400); RBC Distribution Width 14.9 % (11.5-14.5); White Blood Cell (WBC) Count 11.2 thou/uL (4.8-10.8)
[2018-04-24 18:31] LABS: ALT (SGPT) 8 U/L (8-55); AST (SGOT) 16 U/L (5-34); Albumin 3.6 g/dL (3.5-5.0); Alkaline Phosphatase 70 U/L (40-150); Anion Gap 14 mmol/L (10-20); BUN (Urea Nitrogen) 11 mg/dL (8.9-20.6); Bilirubin, Total 0.2 mg/dL (0.2-1.2); CK (CPK) 211 U/L (30-200); Calc. Creatinine Clearance 0 mL/min (70-130); Calcium 8.5 mg/dL (7.8-10.44); Carbon Dioxide 24 mmol/L (22-29); Chloride 100 mmol/L (98-107); Estimated GFR-MDRD Greater than 90; Globulin 2.9 g/dL (2.4-3.5); Glucose 112 mg/dL (70-105); Potassium 3.2 mmol/L (3.5-5.1); Protein, Total 6.5 g/dL (6.0-8.3); Sodium 135 mmol/L (136-145)
--- NOTE | 2018-04-24 18:49 | RAD ---
CHEST TWO VIEWS: 04/24/18 INDICATION: Shortness of breath and dyspnea. COMPARISON: Prior exam dated 03/18/17. FINDINGS: There is cardiomegaly with pulmonary vascular congestion. Perihilar air space opacities suspicious fo r edema or pneumonia. No definite pleural effusion is evident. Thoracolumbar spine instrumentation is similar appearing. IMPRESSION: Cardiomegaly with perihilar air space opacity may reflect pulmonary edema or possibly pneumonia. POS: IGORH
[2018-04-24] MEDS ORDERED: Potassium Chloride 20 MEQ TAB ONE (23:05)
--- NOTE | 2018-04-28 15:39 | EKG ---
Test Reason : Blood Pressure : / mmHG Vent. Rate : 092 BPM Atrial Rate : 092 BPM P-R Int : 166 ms QRS Dur : 116 ms QT Int : 380 ms P-R-T Axes : -06 -06 002 degrees QTc Int : 469 ms Normal sinus rhythm Normal ECG Confirmed by TANA MEDELLIN M.D. ([id number]), mapping editor ESTEE HART ([id number] on 04/28/2018 3:39:54 PM Referred By: Confirmed By:TANA MEDELLIN M.D.
== END 2018-04-24 23:11 | disposition home or self-care (01) ==
LOC: ERS 17:49
DX: J18.9 Pneumonia, unspecified organism (principal); D64.9 Anemia, unspecified; E87.6 Hypokalemia; I50.9 Heart failure, unspecified; F17.210 Nicotine dependence, cigarettes, uncomplicated; Z79.899 Other long term (current) drug therapy
CPT/HCPCS: 36415; 71046; 80053; 82550; 83880; 84484; 85025; 87804; 93005

== ENCOUNTER 2019-05-21 11:32 | Inpatient (IN) | payer MEDICARE, OTHER ==
[2019-05-21] MEDS ORDERED: Iopamidol 370 76% 100 ML VIAL ONE (11:40)
[2019-05-21 12:10] LABS: #Lymphocytes 0.2 thou/uL (1.20-3.40); %Eosinophils 0.3 % (0.0-10.0); %Lymphocytes 3.7 % (21.0-51.0); %Monocytes 0.3 % (0.0-10.0); %Neutrophils 95.7 % (42.0-75.0); Hemoglobin 10.6 g/dL (14.0-18.0); Mean Corpuscular HGB CONC 30.4 g/dL (32.0-36.0); Mean Corpuscular Hemoglobin 26.2 pg (27.0-31.0); Mean Corpuscular Volume 86.2 fL (78.0-98.0); Platelet Count 189 thou/uL (130-400); RBC Distribution Width 15.5 % (11.5-14.5); Red Blood Cell (RBC) Count 4.06 mill/uL (4.70-6.10); White Blood Cell (WBC) Count 6.2 thou/uL (4.8-10.8)
--- NOTE | 2019-05-21 12:11 | RAD ---
PORTABLE CHEST: Date: 05/21/2019 HISTORY: Dyspnea. COMPARISON: 04/24/2018. FINDINGS: Mild cardiomegaly appears stable. The lungs appear clear with no infiltrate or vascular congestion no tamanna. The Ortiz type rods in the spine with scoliotic curvature again noted and stable in appeara nce. IMPRESSION: No acute lung process. POS: [facility]
[2019-05-21 12:33] LABS: ALT (SGPT) Less than 7 U/L (8-55); AST (SGOT) 12 U/L (5-34); Albumin 4.2 g/dL (3.5-5.0); Alkaline Phosphatase 58 U/L (40-110); Anion Gap 15 mmol/L (10-20); BUN (Urea Nitrogen) 11 mg/dL (8.9-20.6); Bilirubin, Total 0.3 mg/dL (0.2-1.2); Calc. Creatinine Clearance 0 mL/min (70-130); Calcium 8.8 mg/dL (7.8-10.44); Carbon Dioxide 22 mmol/L (22-29); Chloride 108 mmol/L (98-107); Estimated GFR-MDRD Greater than 90; Globulin 2.9 g/dL (2.4-3.5); Glucose 73 mg/dL (70-105); Potassium 3.1 mmol/L (3.5-5.1); Protein, Total 7.1 g/dL (6.0-8.3); Sodium 142 mmol/L (136-145)
[2019-05-21] MEDS ORDERED: Cefepime 2 GM VIAL ONE (13:17)
--- NOTE | 2019-05-21 13:56 | CT ---
Exam: Head CT without contrast HISTORY: Fever, chills, shortness of breath. Abnormal rigidity and weakness. COMPARISON: none FINDINGS: Hemorrhage: No intraparenchymal hemorrhage or extra-axial hematoma. Brain parenchyma: Cortical barr-white matter differentiation is preserved. No mass effect or midline shift. Basilar cisterns are patent. Ventricular system: Ventricles and sulci are patent and symmetric. Calvarium: Intact. Sinuses and mastoid air cells: Adequate aeration. IMPRESSION: No acute intracranial process.
[2019-05-21] MEDS ORDERED: Acetaminophen 500 MG TAB ONE (14:02)
[2019-05-21] MEDS ORDERED: Vancomycin 1 GM/200 ML BAG ONE (14:04)
--- NOTE | 2019-05-21 14:04 | CT ---
Exam: CT cervical spine without contrast HISTORY: Trauma. Pain. COMPARISON: None FINDINGS: No craniocervical dissociation. Appropriate alignment of the lateral masses of C1 and C2. Intact odon toid process Appropriate alignment of the facets. Incompletely evaluated fusion hardware in the upper thoracic spine at approximately T3 and possibly T 4 level. Soft tissue neck structures: No mass, lymphadenopathy or hematoma. No prevertebral soft tissue swelli ng. Upper mediastinum and lung apices: Unremarkable Central spinal canal: Varying degrees of central canal stenosis and foraminal narrowing on the basis of degenerative change. Evaluation is limited by technique Vertebral bodies: Cervical spine vertebral body height is maintained. No fracture. IMPRESSION: 1. No fracture 2. Varying degrees of central canal stenosis and foraminal narrowing on the basis of degenerative juan alberto nge. Technique limits evaluation.
--- NOTE | 2019-05-21 14:17 | CT ---
EXAM: CT ABDOMEN AND PELVIS HISTORY: Evaluate for bowel obstruction. Abdominal pain. Distended abdomen. COMPARISON: 09/09/2016 Procedure: Multiple contiguous axial images were obtained and a CT of the abdomen and pelvis with IV contrast. C oronal reformats were performed. FINDINGS: Lower Chest: within normal limits. Vessels: Normal caliber aorta Heart: Upper normal heart size. No significant pericardial fluid Abdomen: Portal vein:Grossly patent Gallbladder: No CT evidence of cholecystitis Liver: within normal limits. Pancreas: within normal limits. Spleen: within normal limits. Adrenals: within normal limits. Kidneys: Symmetric enhancement. No obstructive uropathy. Peritoneum: No ascites or free air, no fluid collection. Bowel: Limited evaluation due to the lack of oral contrast administration. No evidence of bowel obstr uction. Ileocecal junction is unremarkable. Normal caliber appendix. Scattered fecal material in a nondistended, nondilated colon. Mesentery and Retroperitoneum: No enlarged mesenteric or retroperitoneal lymph nodes. Abdominal Wall: within normal limits. Pelvis: Reproductive Organs: Reproductive organs are unremarkable. Pelvis: No mass, lymphadenopathy, free air or free fluid. Bladder: within normal limits. Bones: Limited evaluation the osseous structures secondary to patchy demineralization, patchy scleros is and extensive hardware. Presacral fat is preserved. Tracks from previous bilateral sacral screws are redemonstrated. IMPRESSION: No evidence of acute intraabdominal\pelvic abnormality.
--- NOTE | 2019-05-21 14:41 | CT ---
CT PULMONARY ANGIOGRAM WITH IV CONTRAST AND 3D POSTPROCESSING: HISTORY: Fever, shortness of breath, chills. FINDINGS: The pulmonary arterial vasculature is inadequately opacified. The thoracic aorta is better opacified than the pulmonary arterial vasculature. The possibility of pulmonary embolism cannot be excluded on this exam. The attenuation value in the main pulmonary artery is 137 Hounsfield units and the thoraci c aorta is 212 Hounsfield units. There is no evidence of aneurysm or dissection of the thoracic aorta . No pleural or pericardial effusions are seen. No pneumothoraces, lobar consolidation, or lung ashley s are identified. There are postop changes and metallic hardware in the spine. IMPRESSION: 1. Exam is nondiagnostic for pulmonary embolism. 2. No evidence of thoracic aortic aneurysm or dissection. POS: [facility]
--- NOTE | 2019-05-21 14:43 | PDOC.FPRHP ---
- History of Present Illness Chief Complaint: fever, weakness History of Present Illness: This is a 44yo M presenting to the ER for a CC of weakness in left arm that started this morning. The patient has a hx of seven back surgeries for scoliosis. His last surgery was about 1-2 years ago performed in [place] by a Dr. Reyes. He states that ever since the last surgery he has felt more weak in his left leg and arm. He states that his left arm was profoundly weaker this morning where he couldn't even lift it up. He states that his left leg has been more weak ever since that surgery as well but that it did not get worse today. He endorses a mild cough that is not new. He denies any phlegm. Endorses mild nasal congestion that he believes are from allergies. He reports going to [place] to see his son and his gf. The gf [place] but neither of them have had any symptoms. He denies any headache, vision changes, chest pain, palpitations, abdominal pain. Denies dizziness, lightheadedness. Endorses some nausea, but no vomiting. ED Course: CT abd/pelvis: normal CT cervical spine/brain: no fracture; varying degrees of central canal stenosis and foraminal narrowing on the basis of degenerative change. No intracranial abnormality. CXR: no acute lung process Vanc 1g IV, Cefepime 2g IV, 1L NS, 1g tylenol - Allergies/Adverse Reactions Allergies Allergy/AdvReac Type Severity Reaction Status Date / Time No Known Drug Allergies Allergy Verified 04/29/19 06:53 - Home Medications Medication Instructions Recorded Confirmed Type Gabapentin [Neurontin] 900 mg PO TID #0 07/19/12 03/14/17 History HYDROcodone Bit/APAP 10/325 [[place]] 1 tab PO Q4HR PRN 08/22/14 03/14/17 History Carisoprodol [Soma] 350 mg PO QID 07/31/15 03/14/17 History Furosemide [Lasix] 20 mg PO BID 07/26/16 03/14/17 History Potassium Chloride [K-Dur] 20 meq PO BID 01/20/17 03/14/17 History Famotidine [Pepcid] 20 mg PO BID #30 tab 03/19/17 Rx Levofloxacin [Levaquin] 500 mg PO 0900 #5 tab 02/11/18 Rx guaiFENesin ER [Mucinex] 600 mg PO Q12HR #20 tab 03/19/17 Rx predniSONE 10 mg PO ASDIR #10 tab 03/19/17 Rx - History PMHx: CHF, chronic pain, scoliosis PSHx: seven back surgeries FHx: Father - CAD, lung cancer Social: denies alcohol or drug use. Currently uses tobacco - smokes 1/4pack/day since age 23. Lives at home with parents. - Review of Systems General: reports: fever/chills, fatigue. denies: weight/appetite/sleep changes , night sweats Eyes: denies: vision changes ENT: denies: nasal congestion, rhinorrhea Respiratory: reports: cough, congestion. denies: shortness of breath, exercise intolerance Cardiovascular: denies: chest pain, palpitation, edema Gastrointestinal: denies: nausea, vomiting, diarrhea, constipation, abdominal pain Genitourinary: denies: dysuria Skin: denies: rashes Musculoskeletal: reports: tenderness, swelling. denies: stiffness Neurological: reports: numbness, weakness. denies: syncope, seizure - Vital signs Pulse: 108, Temp: 100.7 (Oral), Pain: 9, O2 sat: 99 on (Room Air), Time: 2019 11:34. Weight 86kg BP: 130/83, MAP: 98, Time: 05/21/2019 11:41 Resp: 18, Time: 05/21/2019 11:41. - Physical Exam Constitutional: NAD, awake, alert and oriented, well developed HEENT: normocephalic and atraumatic, PERRLA, EOMI, no scleral icterus, grossly normal vision, grossly normal hearing, MMM Neck: supple, FROM, trachea midline Chest: no-tender to palpation Heart: RRR, normal S1/S2, no murmurs/rubs/gallops Lungs: CTAB, no respiratory distress, good air movement, no rales/rhonchi, no wheezing, no retractions Abdomen: soft, non-tender, bowel sounds present, no masses/distention, no hernias Musculoskeletal: normal structure, normal tone -Musculoskeletal: limited ROM left upper and lower extremity -Neurological: Limited ROM left upper extremity; unable to fully extend and lift left arm; LLE weaker than RLE; Right arm exam normal; sensation decreased left arm and leg; unable to raise shoulder on Left - normal on right Skin: no rash/lesions, good turgor, capillary refill <2 seconds Heme/Lymphatic: no unusual bruising or bleeding, no purpura, no petechia Psychiatric: normal mood and affect, good judgment and insight, intact recent and remote memory FMR H&P: Results - Labs Result Diagrams: 05/21/19 11:46 05/21/19 11:46 Lab results: WBC 6.2 thou/uL (4.8-10.8) 05/21/19 11:46 Hgb 10.6 g/dL (14.0-18.0) L 05/21/19 11:46 Hct 35.0 % (42.0-52.0) L 05/21/19 11:46 MCV 86.2 fL (78.0-98.0) 05/21/19 11:46 Plt Count 189 thou/uL (130-400) 05/21/19 11:46 Neutrophils % 95.7 % (42.0-75.0) H 05/21/19 11:46 Sodium 142 mmol/L (136-145) 05/21/19 11:46 Potassium 3.1 mmol/L (3.5-5.1) L 05/21/19 11:46 Chloride 108 mmol/L (98-107) H 05/21/19 11:46 Carbon Dioxide 22 mmol/L (22-29) 05/21/19 11:46 BUN 11 mg/dL (8.9-20.6) 05/21/19 11:46 Creatinine 0.88 mg/dL (0.7-1.3) 05/21/19 11:46 Glucose 73 mg/dL (70-105) 05/21/19 11:46 Lactic Acid 1.5 mmol/L (0.5-2.2) 05/21/19 11:46 Calcium 8.8 mg/dL (7.8-10.44) 05/21/19 11:46 Total Bilirubin 0.3 mg/dL (0.2-1.2) 05/21/19 11:46 AST 12 U/L (5-34) 05/21/19 11:46 ALT Less than 7 U/L (8-55) L 05/21/19 11:46 Alkaline Phosphatase 58 U/L (40-110) 05/21/19 11:46 Serum Total Protein 7.1 g/dL (6.0-8.3) 05/21/19 11:46 Albumin 4.2 g/dL (3.5-5.0) 05/21/19 11:46 FMR H&P: A/P - Problem List (1) SIRS (systemic inflammatory response syndrome) Current Visit: Yes Status: Acute Code(s): R65.10 - SIRS OF NON-INFECTIOUS ORIGIN W/O ACUTE ORGAN DYSFUNCTION (2) Hypokalemia Current Visit: No Status: Acute Code(s): E87.6 - HYPOKALEMIA (3) Scoliosis Current Visit: No Status: Chronic (4) Tobacco abuse Current Visit: No Status: Chronic Code(s): Z72.0 - TOBACCO USE (5) Anemia Current Visit: Yes Status: Acute Code(s): D64.9 - ANEMIA, UNSPECIFIED - Plan L arm/leg Weakness, r/o stroke CT brain normal. Risk factors include hx of HTN, significant tobacco use. - MRI brain/c spine pending to r/o stroke. If unable to do will consult with radiology to see if CT perfusion scan possible. - Neurology consulted, appreciate recommendations. - Will give ASA daily, FLP in the AM. A1c 5.1. SIRS without a source Febrile and tachycardic on admission. Influenza negative. CXR normal. CTs normal. - RVP and COVID pending. Lymphopenia present. - Blood cx pending. - s/p vanc and cefepime in the ER. Procal 0.19. Will not continue abx, but will continue to monitor clinical status and initiate abx if indicated. Hypokalemia K 3.1, no EKG changes - Will give 40mEq now and repeat BMP in the AM, continue home potassium Normocytic Anemia Hgb 10.6, MCV 86 - Patient states being worked up outpatient by PCP. Will continue to monitor. Elevated D-dimer D dimer 2.08. Patient not SOB. - CTA indeterminant, unlikley PE clinically as patient not tachycardic, satting well. Will continue to monitor clinical status. COPD - Stable, not in exacerbation. Albuterol and ipratropium MDI as needed. CHF - On furosemide, will continue. HTN - Aware, will continue to monitor closely. BP at goal in the ER. Chronic back pain 2/2 scoliosis s/p surgeries - Will give home meds for pain Tobacco use - Encouraged cessation. Nicotine patch. Dispo: admit to stroke, obs Diet: Reg VTE: lovenox PCP: Dr. Xander Mitchell - [facility] ([facility]) Case discussed with Dr. Gonsalves Addendum - Attending - Attending Attestation Date/Time: 05/21/19 1659 I personally evaluated the patient and discussed the management with Dr. Pena. I agree with the History, Examination, Assessment and Plan documented above with any addition or exceptions noted below.
[2019-05-21] MEDS ORDERED: Morphine 4 MG/ML VIAL ONE (15:05)
[2019-05-21] MEDS ORDERED: Ondansetron ODT 4 MG TAB PO PRN (16:01)
[2019-05-21] MEDS ORDERED: Acetaminophen 325 MG TAB PO PRN (16:01)
[2019-05-21] MEDS ORDERED: Ondansetron PF 4 MG/2 ML Vial IVP PRN (16:01)
[2019-05-21] MEDS ORDERED: Acetaminophen 650 MG Suppository PR PRN (16:01)
[2019-05-21] MEDS ORDERED: Potassium Chloride 20 MEQ TAB PO SCH (16:30)
[2019-05-21] MEDS ORDERED: Ipratropium Oral Inhaler INH PRN (16:38)
[2019-05-21 16:40] LABS: Hemoglobin A1c 5.1 % (4.0-6.0)
[2019-05-21] MEDS ORDERED: PROVENTIL INHALER 6.7 G (200 INHALATIONS) INH PRN (16:40)
[2019-05-21] MEDS ORDERED: HYDROcodone/Acetaminophen 5/325 mg Tablet PO PRN (16:43)
[2019-05-21] MEDS ORDERED: Albuterol 200 PUFF (6.7GM INHALER) INH PRN (16:48)
[2019-05-21] MEDS ORDERED: PROVENTIL INHALER 6.7 G (200 INHALATIONS) INH SCH (17:00)
[2019-05-21] MEDS: HYDROcodone/Acetaminophen 5/325 mg Tablet PO PRN ×2 (18:40→23:28)
[2019-05-21] MEDS: Nicotine 14 MG PATCH TD SCH (18:40)
[2019-05-21] MEDS: Gabapentin 300 MG CAP PO SCH (20:23)
[2019-05-21] MEDS ORDERED: Cyclobenzaprine 10 MG TAB PO SCH (23:00)
[2019-05-21 23:56] LABS: Cocaine Metabolite Screen Detected (NotDetected); Medtox Reader # READER 4; Methamphetamine Detected (NotDetected); Opiate Screen Detected (NotDetected); Phencyclidine (PCP) Not Detected (NotDetected); THC/Cannabinoid Screen Detected (NotDetected)
[2019-05-21 23:57] LABS: Amphetamine Not Detected (NotDetected); Barbiturates Screen Not Detected (NotDetected); Benzodiazepine Screen Not Detected (NotDetected); Medtox Control Line Valid? VALID (VALID); Methadone Not Detected (NotDetected); Oxycodone Screen Not Detected (NotDetected); Tricyclic Screen Not Detected (NotDetected)
[2019-05-22] MEDS: HYDROcodone/Acetaminophen 5/325 mg Tablet PO PRN ×4 (04:05→22:01)
[2019-05-22 05:14] VITALS: BMI 25.2
[2019-05-22 05:37] LABS: #Lymphocytes 0.4 thou/uL (1.20-3.40); #Monocytes 0.2 thou/uL (0.11-0.59); #Neutrophils 7.7 thou/uL (1.40-6.50); %Basophils 0.1 % (0.0-1.0); %Lymphocytes 4.3 % (21.0-51.0); %Monocytes 2.5 % (0.0-10.0); %Neutrophils 93.2 % (42.0-75.0); Hemoglobin 9.2 g/dL (14.0-18.0); Mean Corpuscular Hemoglobin 26.8 pg (27.0-31.0); Mean Corpuscular Volume 86.2 fL (78.0-98.0); Mean Platelet Volume 8.4 fL (7.4-10.4); Platelet Count 156 thou/uL (130-400); RBC Distribution Width 15.4 % (11.5-14.5); Red Blood Cell (RBC) Count 3.44 mill/uL (4.70-6.10); White Blood Cell (WBC) Count 8.3 thou/uL (4.8-10.8)
[2019-05-22 06:05] LABS: Anion Gap 10 mmol/L (10-20); BUN (Urea Nitrogen) 16 mg/dL (8.9-20.6); Calc. Creatinine Clearance 148 mL/min (70-130); Calcium 7.7 mg/dL (7.8-10.44); Carbon Dioxide 23 mmol/L (22-29); Cardiac Risk 2.6 (Less than 4.5); Chloride 110 mmol/L (98-107); Cholesterol 87 mg/dl (< 200 Desired); Estimated GFR-MDRD Greater than 90; Glucose 93 mg/dL (70-105); HDL Cholesterol 33 mg/dL (>60 Neg Risk); LDL Cholesterol, Calculated 45 mg/dL; Potassium 3.1 mmol/L (3.5-5.1); Sodium 140 mmol/L (136-145); Triglycerides 44 mg/dL (Less than 150)
--- NOTE | 2019-05-22 07:29 | PDOC.FM ---
- Subjective Subjective: NAEO. Patient resting comfortably in bed. Patient states weakness in Left arm is the same as yesterday. Denies any chest pain or palpitations. Denies changes in vision or headache. - Objective MAR Reviewed: Yes Vital Signs & Weight: Vital Signs (12 hours) Temp Pulse Resp BP Pulse Ox 05/22/19 04:00 98.9 F 78 18 111/56 L 99 05/21/19 23:26 100.5 F H 79 20 137/76 100 05/21/19 20:00 70 18 128/72 100 Weight Weight 84.232 kg Result Diagrams: 05/22/19 05:01 05/22/19 05:01 Phys Exam - Physical Examination Constitutional: NAD HEENT: moist MMs, sclera anicteric Neck: supple, full ROM Respiratory: clear to auscultation bilateral Cardiovascular: RRR Gastrointestinal: soft, no distention unable to raise L arm or leg; sensation intact Psychiatric: normal affect, A&O x 3 Skin: no rash, normal turgor Dx/Plan (1) SIRS (systemic inflammatory response syndrome) Code(s): R65.10 - SIRS OF NON-INFECTIOUS ORIGIN W/O ACUTE ORGAN DYSFUNCTION Status: Acute (2) Hypokalemia Code(s): E87.6 - HYPOKALEMIA Status: Acute (3) Scoliosis Status: Chronic (4) Tobacco abuse Code(s): Z72.0 - TOBACCO USE Status: Chronic (5) Anemia Code(s): D64.9 - ANEMIA, UNSPECIFIED Status: Acute - Plan Plan: L arm/leg Weakness, r/o stroke CT brain normal. Risk factors include hx of HTN, significant tobacco use. - MRI brain/c spine pending to r/o stroke. Unable to do until COVID results return. - Neurology consulted, appreciate recommendations. - Will give ASA, statin daily - Discussed with patient to do exercises himself with arm/leg as able SIRS without a source Febrile and tachycardic on admission. Influenza and RVP negative. CXR normal. CTs normal. - COVID pending. Lymphopenia present. - Blood cx pending. - s/p vanc and cefepime in the ER. Procal 0.19. Will not continue abx, but will continue to monitor clinical status and initiate abx if indicated. Hypokalemia K 3.1, no EKG changes - Will continue to replace as needed. Will continue home potassium. Normocytic Anemia Hgb 10.6, MCV 86 - Patient states being worked up outpatient by PCP. Will continue to monitor. Elevated D-dimer D dimer 2.08. Patient not SOB. - CTA indeterminant, unlikley PE clinically as patient not tachycardic, satting well. Will continue to monitor clinical status. COPD - Stable, not in exacerbation. Albuterol and ipratropium MDI as needed. CHF - On furosemide, will continue. HTN - Aware, will continue to monitor closely. BP at goal in the ER. Chronic back pain 2/2 scoliosis s/p surgeries - Will give home meds for pain Tobacco use - Encouraged cessation. Nicotine patch. Diet: Reg VTE: lovenox PCP: Dr. Xander Mitchell - [facility] ([facility]) Case discussed with Dr. Gonsalves Addendum - Attending - Attending Attestation Date/Time: 05/22/19 5145 I personally evaluated the patient and discussed the management with Dr. Pena. I agree with the History, Examination, Assessment and Plan documented above with any addition or exceptions noted below. Patient stable. Awaiting COVID test result so we can obtain MRI to evaluate for CVA causing his focal deficit. His drug screen is positive for cocaine. Needs PT eval but will be waiting until COVID result. Needs Neurology but same as above.
[2019-05-22] MEDS ORDERED: Potassium Chloride 20 MEQ TAB PO SCH (07:30)
[2019-05-22 07:53] LABS: Magnesium 1.8 mg/dL (1.6-2.6); Phosphorus 2.1 mg/dL (2.3-4.7)
[2019-05-22] MEDS: Enoxaparin Sodium 40 MG/0.4 ML SYRINGE SC SCH (08:56)
[2019-05-22] MEDS: Aspirin 81 mg Enteric Coated Tablet PO SCH (08:56)
[2019-05-22] MEDS: Furosemide 20 MG TAB PO SCH ×2 (08:56→20:27)
[2019-05-22] MEDS: Gabapentin 300 MG CAP PO SCH ×3 (08:56→20:27)
[2019-05-22] MEDS ORDERED: Furosemide 20 MG TAB PO SCH (09:00)
[2019-05-22] MEDS ORDERED: predniSONE 20 MG TAB PO SCH (15:00)
[2019-05-22] MEDS: Potassium Chloride 20 MEQ TAB PO SCH (15:58)
[2019-05-22] MEDS: Nicotine 14 MG PATCH TD SCH (16:00)
[2019-05-22] MEDS ORDERED: Atorvastatin Calcium 40 MG TAB PO SCH (21:00)
[2019-05-23] MEDS: HYDROcodone/Acetaminophen 5/325 mg Tablet PO PRN ×3 (04:41→14:53)
--- NOTE | 2019-05-23 07:00 | PDOC.FM ---
- Subjective Subjective: NAEO. Patient sitting comfortably on the side of the bed. Patient able to lift left arm slightly more off the bed today than previously. Patient denies any vision changes, headaches, NVD, chest pain, palpitations, NVD. - Objective MAR Reviewed: Yes Vital Signs & Weight: Vital Signs (12 hours) Temp Pulse Resp BP BP Pulse Ox 05/23/19 03:38 97.6 F 54 L 16 152/85 H 98 05/23/19 01:27 96.8 F L 63 18 168/96 H 100 05/22/19 20:27 98.8 F 83 20 145/82 H 99 Weight Weight 83.552 kg Result Diagrams: 05/22/19 05:01 05/22/19 05:01 Phys Exam - Physical Examination Constitutional: NAD HEENT: moist MMs, sclera anicteric Neck: supple, full ROM Respiratory: clear to auscultation bilateral Cardiovascular: RRR Gastrointestinal: soft Musculoskeletal: no edema left arm - able to lift arm straight up about 10 dgrees unable to lift left left arm using deltoid; sensation decreased left arm/le Psychiatric: normal affect, A&O x 3 Skin: no rash, normal turgor, cap refill <2 seconds Dx/Plan (1) SIRS (systemic inflammatory response syndrome) Code(s): R65.10 - SIRS OF NON-INFECTIOUS ORIGIN W/O ACUTE ORGAN DYSFUNCTION Status: Acute (2) Hypokalemia Code(s): E87.6 - HYPOKALEMIA Status: Acute (3) Scoliosis Status: Chronic (4) Tobacco abuse Code(s): Z72.0 - TOBACCO USE Status: Chronic (5) Anemia Code(s): D64.9 - ANEMIA, UNSPECIFIED Status: Acute - Plan Plan: L arm/leg Weakness, r/o stroke CT brain normal. Risk factors include hx of HTN, significant tobacco use. - MRI brain/c spine pending to r/o stroke - COVID neg, so can get done today - Neurology consulted, appreciate recommendations. - Will give ASA, statin daily - PT/OT to work with patient today SIRS without a source Febrile and tachycardic on admission. Influenza and RVP negative. CXR normal. CTs normal. - COVID NEGATIVE - Blood cx 1/2 gram variable sonali preliminary - s/p vanc and cefepime in the ER. Procal 0.19. Will not continue abx, but will continue to monitor clinical status and initiate abx if indicated. Hypokalemia K 3.1, no EKG changes - Will continue to replace as needed. Will continue home potassium. Normocytic Anemia - Patient states being worked up outpatient by PCP. Will continue to monitor. Elevated D-dimer D dimer 2.08. Patient not SOB. - CTA indeterminant, unlikley PE clinically as patient not tachycardic, satting well. Will continue to monitor clinical status. COPD - Stable, not in exacerbation. Albuterol and ipratropium MDI as needed. CHF - On furosemide, will continue. HTN - Aware, will continue to monitor closely. BP at goal in the ER. Chronic back pain 2/2 scoliosis s/p surgeries - Will give home meds for pain Tobacco use - Encouraged cessation. Nicotine patch. Drug use - UDS positive, encourage cessation Diet: Reg VTE: lovenox PCP: Dr. Xander Mitchell - [facility] ([facility]) Case discussed with Dr. Gonsalves Addendum - Attending - Attending Attestation Date/Time: 05/23/19 1011 I personally evaluated the patient and discussed the management with Dr. Pena. I agree with the History, Examination, Assessment and Plan documented above with any addition or exceptions noted below. Patient with some improvement in symptoms, but continues to have unilateral deficits. MRI pending today. Neuro consult placed. COVID negative. Therapy services now that COVID negative.
[2019-05-23] MEDS ORDERED: predniSONE 20 MG TAB PO SCH (08:00)
[2019-05-23] MEDS: Potassium Chloride 20 MEQ TAB PO SCH (08:09)
[2019-05-23] MEDS: Aspirin 81 mg Enteric Coated Tablet PO SCH (08:09)
[2019-05-23] MEDS: Gabapentin 300 MG CAP PO SCH ×2 (08:09→14:53)
[2019-05-23] MEDS: Furosemide 20 MG TAB PO SCH (08:10)
[2019-05-23] MEDS: Enoxaparin Sodium 40 MG/0.4 ML SYRINGE SC SCH (08:10)
--- NOTE | 2019-05-23 13:35 | MRI ---
MRI BRAIN WITH AND WITHOUT CONTRAST: Date: 05/23/2019 INDICATION: Left arm and leg weakness. FINDINGS: The ventricles have normal size and position. There is no evidence of restricted diffusion. No mass, infarct, or hemorrhage. No significant white matter abnormality. Sagittal and axial images demonstrate cerebellar tonsillar ectopia. Tonsillar extension below the for amen magnum is measured at approximately 10.0 mm, which would indicate a Chiari I malformation. This does appear to compress the brainstem at the cervicomedullary junction. There is evidence of syrinx f ormation in the upper cervical cord. See separate MRI of cervical spine. No abnormal enhancement identified. The intracranial internal carotid arteries and cerebral arteries show expected flow-voids. IMPRESSION: 1. 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 2. Evidence of syrinx in the upper cervical cord. See separate MRI of cervical spine. POS: [facility]
--- NOTE | 2019-05-23 14:03 | MRI ---
MRI CERVICAL SPINE WITH AND WITHOUT CONTRAST: HISTORY: Left arm and leg weakness. FINDINGS: Sagittal images show a Chiari-1 Malformation with tonsillar ectopia. Tonsillar ectopia beyond the fo ramen magnum is measured at approximately 10 mm and there is compression on the brainstem at the cerv icomedullary junction. There is a large hydromyelia/syrinx throughout the visualized cervical cord. No abnormal enhancement identified on postcontrast images. The etiology for this syrinx is presumably the Chiari-1 malforma tion. The cervical vertebrae maintain height and alignment. Vertebral body signal is normal. C2-3: No significant disk or spondylosis. C3-4: Mild posterior disk bulge and spondylosis without cord impingement. C4-5: Mild disk bulge and spondylosis efface the anterior subarachnoid space. No central canal sten osis. Mild left foraminal stenosis due to uncinate hypertrophy. C5-6: Disk bulge and spondylosis impinge on the anterior cord. Left foraminal stenosis. C6-7: No significant disk or spondylitic change. IMPRESSION: 1. Evidence of a Chiari-1 malformation with cerebellar tonsillar ectopia which does impinge on the b rainstem at the cervicomedullary junction. 2. Large syrinx throughout the cervical cord presumably as a result of the Chiari-1 malformation. 3. Mild spondylosis in the cervical spine as described above. Findings are most pronounced at the C 5-6 level where there is abnormal disk and spondylitic change impinging on the cord and projecting in to the foramina bilaterally more pronounced on the left. POS: [facility]
--- NOTE | 2019-05-23 14:28 | CON ---
Duplicate Delete MTDD
--- NOTE | 2019-05-23 14:49 | CON ---
DATE OF CONSULTATION: 05/23/2019 HISTORY OF PRESENT ILLNESS: Mr. Goldsmith is a 44-year-old male, consulted for left upper extremity weakness which became worse yesterday morning. According to the patient, he had several back surgeries for scoliosis, and his last surgery was 1 -2 years ago, performed in [place] by Dr. Reyes. The patient became progressively weak in his left arm and leg since last surgery , but the weakness has become worse with fever and cough yesterday , so he decided to come to the ED for further evaluation. The patient denies dizziness, vertigo, chest pain, blurred vision, or speech problems or difficulty with swallowing. He denies headache, nausea, or tinnitus. The weakness in the left arm is also associated with pain which starts from the shoulder and then radiates down to the hand. The imaging was done in the emergency room which includes HCT which did not show any acute intracranial pathology. The CT of the cervical spine did not show any fracture, but varying degrees of central canal stenosis and foraminal narrowing consistent with degenerative disease. ALLERGIES: NO KNOWN DRUG ALLERGIES. MEDICATIONS: 1. Gabapentin 900 mg 3 times daily. 2. Hydrocodone 1 tablet q.4 hours p.r.n. 3. Soma 350 mg q.i.d. 4. Furosemide 20 mg p.o. b.i.d. 5. Potassium chloride 20 mEq twice daily. 6. Famotidine 20 mg twice daily. 7. Levaquin 500 mg. PAST MEDICAL HISTORY: Significant for congestive heart failure, chronic pain, and scoliosis. PAST SURGICAL HISTORY: Seven back surgeries. FAMILY HISTORY: Father had coronary artery disease and lung cancer. SOCIAL HISTORY: The patient denies alcohol or illegal drug use. He uses tobacco. Smokes 1-2 packs per day since the age of 23. He lives at home with his parents. REVIEW OF SYSTEMS: Denies nausea, vomiting, headache, dizziness, chest pain, or edema. History is positive for cough and fever. PHYSICAL EXAMINATION: VITAL SIGNS: Blood pressure 135/83, pulse 100, temperature 98. CHEST: Clear. CVS: Regular rate and rhythm. CONSTITUTION: Alert, awake, well developed. HEENT: Normocephalic. Atraumatic. NEUROLOGIC: Mental status; the patient is alert and oriented to person, place, and time. Speech is clear. Cranial nerves 2 through 12 are grossly intact. Motor; muscle tone and bulk are normal. Strength 5/5 in all extremities except left upper extremity because of pain. Sensory intact. Cerebellar, slow on the left because of pain. Gait deferred due to patient's safety reason. LABORATORY DATA: Labs reviewed which were insignificant. ASSESSMENT AND PLAN: The patient consulted for left upper and lower extremity weakness to rule out stroke. Exam most significant with cervical spine pathology because of pain and limited motion rather than weakness. We will follow up on the MRI results Continue aspirin 325 mg daily. Neuro Checks every 4 hours. PT/OT We will continue to follow. Thank you for the consult. Job ID: [id number] [facility]
[2019-05-23 15:48] VITALS: TEMP 98.5
--- NOTE | 2019-05-23 19:02 | CON ---
DATE OF CONSULTATION: Consulted to review MRI of the brain and C-spine on Mr. Goldsmith. After review of the film in conjunction with my supervising physician, Dr. Feng, there does not appear to be a Chiari malformation. It shows in his medical opinion, a moderate amount of space within the foramen magnum to have any significant compression. No emergencies noted on MRI images. The patient will follow up with Physical Therapy and states he has follow up appointment with his surgeon, Dr. Abdullahi in [place] regarding his worsening sclerosis, in which he has had seven back surgeries. Job ID: [id number] [facility]
[2019-05-23 21:59] VITALS: BP 149/68
--- NOTE | 2019-05-24 12:26 | DIS ---
DATE OF ADMISSION: 05/21/2019 DATE OF DISCHARGE: 05/23/2019 RESIDENT: Екатерина Pena MD ADMITTING ATTENDING: Dr. Sj Gonsalves. DISCHARGE ATTENDING: Dr. Sj Gonsalves. CONSULTS: 1. Neurology, Dr. Mari. 2. Neurosurgery, Dr. Feng. PROCEDURES: 1. Brain MRI on 05/23/2019 showing Chiari 1 malformation with cerebellar tonsillar ectopia and compression of the brainstem at the cervicomedullary junction and evidence of firing in the upper cervical cord. 2. Cervical spine MRI done on 05/23/2019 showing evidence of a Chiari 1 malformation with cerebellar tonsillar ectopia which does impinge on the brain stem at the cervicomedullary junction, large primary throughout cervical cord presumably as a result of the Chiari 1 malformation, mild spondylosis in the cervical spine most pronounced at the C5-6 level where there is abnormal disk and impingement on the cord. DISCHARGE MEDICATIONS: 1. Gabapentin 900 mg oral 3 times daily. 2. [place] 10/325 one tablet oral every 4 hours as needed. 3. Soma 350 mg oral 4 times as needed. 4. Lasix 20 mg oral twice daily. 5. K-Dur 20 mEq oral twice daily. 6. Mucinex 600 mg oral every 12 hours. DISCONTINUED MEDICATIONS: None. PRIMARY DIAGNOSES: 1. Left arm weakness secondary to cervical cord abnormality. 2. Hypokalemia. 3. Normocytic anemia. SECONDARY DIAGNOSES: 1. Chronic obstructive pulmonary disease. 2. Congestive heart failure. 3. Hypertension. 4. Chronic back pain secondary to scoliosis, status post multiple surgeries. 5. Tobacco use. 6. Drug use. HISTORY OF PRESENT ILLNESS/HOSPITAL COURSE: This is a 44yo M who presented to the ER with a CC of weakness in his left arm. He has a PMH of scoliosis and has had 7 back surgeries to help with this. The last surgery was done about [address] Reyes in [place]. The patient states that ever since then he has had some weakness in his left arm and leg but that the weakness got profoundly worse when he woke up. He states that he could not even lift it up. He endorsed a mild cough, nasal congestion as well as travel to [place] to see his son where the son's girlfriend works at the airport. The patient met SIRS criteria and was given vancomycin and cefepime and 1L NS in the ER. The patient had CT scans done of the head/cervical spine/ abd/pelvis which were all normal. He was admitted to stroke for further work up of his left arm weakness. A COVID swab was also obtained due to patient's symptoms and recent travel. L arm weakness - the patient had an MRI of head and cspine done once COVID results were negative that showed the above findings. Neurology and neurosurgery were both consulted. Spoke with neurosurgery who stateed likely not a Chiari Malformation and that no emergent procedures were needed. Patient told to follow up with his neurosurgeon in [place] as soon as possible. Patient was set up with outpatient PT/OT. Discussed this with the patient to try to follow up immediately with his neurosurgeon. COVID - results were negative. RVP and influenza negative. Discussed tobacco and drug use - encouraged cessation with patient who agreed to stop use. Patient's chronic conditions remained stable throughout his hospital stay. He will need to follow up with his PCP to watch his BP and to follow up with his neurosurgeon in [facility]. DISPOSITION: Stable. DISCHARGE INSTRUCTIONS: 1. Location: Home. 2. Activity: Ad luis f with continued outpatient physical therapy. 3. Diet: Regular. 4. Followup: Follow up with PCP, Dr. Xander Mitchell from [facility] within 1 week and follow up with neurosurgeon, Dr. Prasad, in [facility] as soon as possible. Job ID: [id number] MTDD
--- NOTE | 2019-05-25 09:48 | EKG ---
Test Reason : Blood Pressure : / mmHG Vent. Rate : 105 BPM Atrial Rate : 105 BPM P-R Int : 136 ms QRS Dur : 094 ms QT Int : 326 ms P-R-T Axes : 020 003 008 degrees QTc Int : 430 ms Sinus tachycardia Possible Left atrial enlargement Borderline ECG Confirmed by SHERWIN HILL DO ([id number]), editor managing newspaper LUKE LU ([id number]) on 05/25/2019 9:48:44 AM Referred By: Confirmed By:SHERWIN HILL DO
--- NOTE | 2019-05-29 07:19 | PQF ---
CELSO SERRANO JASON MD *r* [id number] [facility]-248 [id number] CLINICAL DOCUMENTATION CLARIFICATION FORM: POST DISCHARGE Addendum to original discharge summary date: ____ Late entry note date: __ DATE: 05/29/19 ATTN: Sj Higgins Please exercise your independent, professional judgment in responding to the clarification form. Clinical indicators are provided on the bottom of this form for your review Can you please further clarify the etiology fo SIRS? Please check appropriate box(s): [ X ] SIRS due to Non-infectious process: [ ] Lymphopenia [ ] Cervical cord abnormality [ X] SIRS of unknown etiology [ ] other please specify [ ] With organ dysfunction [ ] Without organ dysfunction [ ] Other diagnosis [ ] Unable to determine In addition, please specify: Present on Admission (POA): [X ] Yes [ ] No [ ] Unable to determine For continuity of documentation, please document condition throughout progress notes and discharge summary. Thank You. CLINICAL INDICATORS - SIGNS / SYMPTOMS / LABS H and P pg.1- fever and weakness H and P pg.4- SIRS without source. Afebrile and tachycardic on admission H and P pg.2- Vital signs: Pulse 100.7, Temp 100.7, BP 180/83, Respi 18 H and P P pg.4- Lymphopenia present DS pg.2- the patient met SIRS criteria and was given vancomycin and cefepime and 1L NS in ER RISK FACTORS Tobacco use- H and P pg.5 CHF- H and P pg.5 COPD- DS pg.2 HTN- DS pg.2 TREATMENT IV Fluids- MAR Blood culture- Microbiology Vancomycin 1gm IV- MAR Cefepime 2gm IV -MAR (This form is maintained as a part of the permanent medical record) 2014 [employer]. All Rights Reserved [email or web address]
--- NOTE | 2019-05-29 07:38 | PQF ---
[employer] Veterinary Technician Assistant Crystal Reports Winform Viewer ZACHCELSO JASON MD *r* [id number] [facility]-248 [id number] CLINICAL DOCUMENTATION CLARIFICATION FORM: POST DISCHARGE Addendum to original discharge summary date: ____ Late entry note date: __ DATE: 05/29/19 ATTN: Sj Higgins Please exercise your independent, professional judgment in responding to the clarification form. Clinical indicators are provided on the bottom of this form for your review Can you please further clarify if Cervical spine abnormality is a complication of recent surgury of not? Please check appropriate box(s): [ ] Cervical spine abnormality is a complication of recent surgery [X ] Cervical spine abnormality is not a complication of recent surgery [ ] Other diagnosis [ ] Unable to determine In addition, please specify the specificity of cervical spine abnormality? Cervical spine abnormality due to: [ ] DDD cervical spine [ ] cervical spinal sclerosis [ ] cervical disk displacement [ ] other please specify [ X] Unable to determine- Neurosurgery did not agree with MRI report. CLINICAL INDICATORS - SIGNS / SYMPTOMS / LABS H and P pg.1- hx of seven back surgeries for scoliosis Family PN pg.3- chronic back pain 2/2 scoliosis s/p surgeries Consult 05/22 Dr. Mari pg.1- consulted for upper extremity weakness which become more worse Consult 05/22 Dr. Mari pg.1- CT of cervical spine did not show any fracture, but varying degrees of central canal stenosis CT Spine- central canal stenosis RISK FACTORS Cervical cord abnormality- DS pg.1 cervical spondylosis- DS pg.1 Scoliosis- H and P pg.1 Recent multiple back surgery- H and P pg.1 TREATMENT: Cervical Spine CT 05/[address] Mari Cervical Spine MRI Tylenol 650mg PO- MAR 05/20 Morphine sulfate 4mg IV MAR Vancomycin 1gm IV- MAR Cefepime 2gm IV -MAR (This form is maintained as a part of the permanent medical record) 2014 [employer] All Rights Reserved [email or web address]
== END 2019-05-23 16:59 | disposition home or self-care (01) | DRG 552 ==
LOC: ERS 11:32 → OBSVTOIN 14:57 → 2SW 14:57 → INTOOBSV 05-23 13:52 → OBSVTOIN 05-23 13:52
PROVIDERS: ADMIT Student in an Organized Health Care Education/Training Program; ATTEND Student in an Organized Health Care Education/Training Program
DX: M50.020 Cervical disc disorder with myelopathy, mid-cervical region, unspecified level (principal); R65.10 Systemic inflammatory response syndrome (SIRS) of non-infectious origin without acute organ dysfunction; M50.30 Other cervical disc degeneration, unspecified cervical region; M48.02 Spinal stenosis, cervical region; Z20.828 Contact with and (suspected) exposure to other viral communicable diseases; I50.9 Heart failure, unspecified; G89.29 Other chronic pain; M41.9 Scoliosis, unspecified; F17.210 Nicotine dependence, cigarettes, uncomplicated; E87.6 Hypokalemia; D64.9 Anemia, unspecified; J44.9 Chronic obstructive pulmonary disease, unspecified; I11.0 Hypertensive heart disease with heart failure; M47.812 Spondylosis without myelopathy or radiculopathy, cervical region; Z79.890 Hormone replacement therapy; Z79.82 Long term (current) use of aspirin; Z79.899 Other long term (current) drug therapy; Z11.59 Encounter for screening for other viral diseases; Z79.51 Long term (current) use of inhaled steroids; M50.03 Cervical disc disorder with myelopathy, cervicothoracic region
CPT/HCPCS: 36415; 70450; 70553; 71045; 71275; 72125; 72156; 74177; 80048; 80053; 80061; 80306; 83036; 83605; 83735; 84100; 84145; 85025; 85379; 87040; 87077; 87633; 87635; 87804; 93005; 94760; 96365; 96367; 96375; J0692; J1650; J2270; J3370; J7512; Q9967; U0002

== ENCOUNTER 2020-03-15 13:18 | Inpatient (IN) | payer MEDICARE, MEDICAID ==
[~2020-03-15 13:18] MED LIST: Iopamidol-370 76% 500 ML 1 ML ONE
[2020-03-15] MEDS ORDERED: methylPREDNISolone Sod Succ/PF 125 MG/2 ML VIAL ONE (14:04)
[2020-03-15] MEDS ORDERED: Magnesium 2 GM/50 ML BAG (IN WATER) ONE (14:04)
[2020-03-15] MEDS ORDERED: Ondansetron PF 4 MG/2 ML Vial ONE (14:05)
[2020-03-15] MEDS ORDERED: Sodium Chloride 0.9% 100 ML ONE (14:05)
[2020-03-15] MEDS ORDERED: cefTRIAXone\\ROCEPHIN 1 GM VIAL ONE (14:05)
[2020-03-15 14:07] LABS: #Monocytes 0.3 thou/uL (0.11-0.59); #Neutrophils 11.6 thou/uL (1.40-6.50); %Basophils 0.3 % (0.0-1.0); %Eosinophils 0.3 % (0.0-10.0); %Lymphocytes 7.9 % (21.0-51.0); %Monocytes 1.9 % (0.0-10.0); %Neutrophils 89.5 % (42.0-75.0); Hemoglobin 9.1 g/dL (14.0-18.0); Mean Corpuscular HGB CONC 30.5 g/dL (32.0-36.0); Mean Corpuscular Hemoglobin 25.9 pg (27.0-31.0); Mean Corpuscular Volume 84.9 fL (78.0-98.0); Mean Platelet Volume 8.1 fL (7.4-10.4); Platelet Count 215 thou/uL (130-400); RBC Distribution Width 16.5 % (11.5-14.5); Red Blood Cell (RBC) Count 3.52 mill/uL (4.70-6.10); White Blood Cell (WBC) Count 12.9 thou/uL (4.8-10.8)
[2020-03-15 14:26] LABS: ALT (SGPT) 10 U/L (8-55); AST (SGOT) 43 U/L (5-34); Albumin 3.2 g/dL (3.5-5.0); Alkaline Phosphatase 66 U/L (40-110); Anion Gap 12 mmol/L (10-20); BUN (Urea Nitrogen) 14 mg/dL (8.9-20.6); Bilirubin, Total 0.4 mg/dL (0.2-1.2); CK (CPK) 1577 U/L (30-200); Calc. Creatinine Clearance 0 mL/min (70-130); Calcium 7.7 mg/dL (7.8-10.44); Carbon Dioxide 21 mmol/L (22-29); Chloride 106 mmol/L (98-107); Globulin 2.4 g/dL (2.4-3.5); Glucose 94 mg/dL (70-105); Lipase 7 U/L (8-78); Potassium 3.3 mmol/L (3.5-5.1); Protein, Total 5.6 g/dL (6.0-8.3); Sodium 136 mmol/L (136-145)
[2020-03-15 15:15] LABS: SARS-CoV-2 NAA Rapid Test Not Detected (NotDetected)
[2020-03-15 17:08] LABS: Strep pneumo Urine Ag NEGATIVE (NEGATIVE)
[2020-03-15] MEDS ORDERED: Ondansetron ODT 4 MG TAB PO PRN (17:30)
[2020-03-15] MEDS ORDERED: Ondansetron PF 4 MG/2 ML Vial IVP PRN (17:30)
[2020-03-15] MEDS ORDERED: HYDROcodone/Acetaminophen 10/325 mg Tablet PO PRN (17:30)
[2020-03-15] MEDS ORDERED: Calcium Carbonate 500 MG ChewTAB PO PRN (17:31)
[2020-03-15] MEDS ORDERED: Acetaminophen 325 MG Suppository PR PRN (17:33)
[2020-03-15] MEDS ORDERED: Acetaminophen 325 MG/10.15 ML UDCUP PO PRN (17:33)
[2020-03-15] MEDS ORDERED: Electrolyte Replacement Protocol 1 EACH IVPB SCH (17:33)
[2020-03-15] MEDS ORDERED: Cyclobenzaprine 10 MG TAB PO PRN (17:35)
[2020-03-15] MEDS ORDERED: methylPREDNISolone Sod Succ 40 MG VIAL IVP SCH (18:00)
[2020-03-15] MEDS ORDERED: Azithromycin 500 MG in Sodium Chloride 0.9% 250 ML 250 ML IVPB SCH (18:30)
[2020-03-15 19:35] LABS: Medtox Reader # READER 4
[2020-03-15 19:36] LABS: Amphetamine Not Detected (NotDetected); Barbiturates Screen Not Detected (NotDetected); Benzodiazepine Screen Not Detected (NotDetected); Cocaine Metabolite Screen Not Detected (NotDetected); Medtox Control Line Valid? VALID (VALID); Methadone Not Detected (NotDetected); Methamphetamine Not Detected (NotDetected); Opiate Screen Detected (NotDetected); Oxycodone Screen Not Detected (NotDetected); Phencyclidine (PCP) Not Detected (NotDetected); THC/Cannabinoid Screen Not Detected (NotDetected); Tricyclic Screen Not Detected (NotDetected)
[2020-03-15] MEDS: Potassium Chloride 20 MEQ TAB PO SCH ×2 (19:39→23:08)
[2020-03-15] MEDS ORDERED: methylPREDNISolone Sod Succ 40 MG VIAL ONE (19:40)
[2020-03-15] MEDS ORDERED: Potassium Chloride 20 MEQ TAB ONE (19:40)
[2020-03-15] MEDS ORDERED: Azithromycin 500 MG VIAL ONE (19:41)
[2020-03-15] MEDS: Gabapentin 300 MG CAP PO SCH (19:45)
[2020-03-15] MEDS ORDERED: Acetaminophen 650 MG/20.3 ML UDCUP PO PRN (19:45)
[2020-03-15] MEDS ORDERED: Dexamethasone 4 mg/ml Vial SLOW IVP SCH (20:00)
[2020-03-15 20:42] VITALS: BMI 26.2
[2020-03-15] MEDS ORDERED: Enoxaparin Sodium 40 MG/0.4 ML SYRINGE SC SCH (21:00)
[2020-03-15] MEDS ORDERED: Famotidine 20 MG TAB PO SCH (21:00)
[2020-03-15] MEDS: Cefepime 2 GM in Sodium Chloride 0.9% 100 ML IVPB SCH (21:08)
[2020-03-15] MEDS: guaiFENesin ER 600 MG TAB PO SCH (21:08)
[2020-03-15] MEDS: Senokot S 8.6-50 MG TAB PO SCH (21:08)
[2020-03-15 21:17] LABS: Troponin I Less than 0.010 ng/mL (< 0.028)
[2020-03-16 03:59] LABS: #Lymphocytes 0.5 thou/uL (1.20-3.40); #Monocytes 0.2 thou/uL (0.11-0.59); #Neutrophils 13.9 thou/uL (1.40-6.50); %Lymphocytes 3.5 % (21.0-51.0); %Monocytes 1.3 % (0.0-10.0); %Neutrophils 95.2 % (42.0-75.0); Hemoglobin 9.3 g/dL (14.0-18.0); Mean Corpuscular HGB CONC 29.9 g/dL (32.0-36.0); Mean Corpuscular Hemoglobin 25.4 pg (27.0-31.0); Mean Corpuscular Volume 85.1 fL (78.0-98.0); Platelet Count 196 thou/uL (130-400); RBC Distribution Width 16.3 % (11.5-14.5); Red Blood Cell (RBC) Count 3.66 mill/uL (4.70-6.10); White Blood Cell (WBC) Count 14.6 thou/uL (4.8-10.8)
[2020-03-16 04:24] LABS: Anion Gap 14 mmol/L (10-20); BUN (Urea Nitrogen) 14 mg/dL (8.9-20.6); CK (CPK) 1070 U/L (30-200); Calc. Creatinine Clearance 163 mL/min (70-130); Calcium 8.1 mg/dL (7.8-10.44); Carbon Dioxide 18 mmol/L (22-29); Chloride 110 mmol/L (98-107); Glucose 131 mg/dL (70-105); Potassium 4.7 mmol/L (3.5-5.1); Sodium 137 mmol/L (136-145)
[2020-03-16 08:35] LABS: SARS-CoV-2 PCR by NAA Not Detected (NotDetected)
[2020-03-16] MEDS ORDERED: Ipratropium/Albuterol Sulfate 4 GM AER IH PRN (08:42)
[2020-03-16] MEDS ORDERED: Enoxaparin Sodium 40 MG/0.4 ML SYRINGE SC SCH (09:00)
[2020-03-16] MEDS: Senokot S 8.6-50 MG TAB PO SCH ×2 (09:57→20:40)
[2020-03-16] MEDS: Gabapentin 300 MG CAP PO SCH (09:57)
[2020-03-16] MEDS: Multivit, Therapeutic 1 TAB PO SCH (09:58)
[2020-03-16] MEDS: Cholecalciferol 1,000 UNITS (25 MCG) TAB PO SCH (09:58)
[2020-03-16] MEDS: Zinc Sulfate 220 MG CAP PO SCH (09:58)
[2020-03-16] MEDS: guaiFENesin ER 600 MG TAB PO SCH ×3 (09:58→22:15)
[2020-03-16] MEDS: Ascorbic Acid 500 mg Chewable Tablet PO SCH (09:58)
[2020-03-16] MEDS: Potassium Chloride 20 MEQ TAB PO SCH (09:58)
[2020-03-16] MEDS: Cefepime 2 GM in Sodium Chloride 0.9% 100 ML IVPB SCH (12:15)
[2020-03-16] MEDS: methylPREDNISolone Sod Succ 40 MG VIAL IVP SCH ×3 (12:32→23:37)
[2020-03-16] MEDS: Ipratropium/Albuterol Sulfate 4 GM AER IH SCH ×2 (15:11→18:40)
[2020-03-16] MEDS ORDERED: Amlodipine 10 MG TAB PO SCH (17:00)
[2020-03-16] MEDS: Sodium Chloride 0.9% 1,000 ML IV SCH (17:08)
[2020-03-16] MEDS: Enoxaparin Sodium 40 MG/0.4 ML SYRINGE SC SCH (20:40)
[2020-03-16] MEDS: Colchicine 0.6 MG TAB PO SCH (20:40)
[2020-03-16] MEDS ORDERED: FLU VACC QS2020-21(6MOS UP)/PF 60 MCG/0.5 ML SYRINGE IM ONE (21:00)
[2020-03-17] MEDS: Ipratropium/Albuterol Sulfate 4 GM AER IH SCH ×4 (00:22→18:47)
[2020-03-17] MEDS: methylPREDNISolone Sod Succ 40 MG VIAL IVP SCH ×4 (05:44→23:48)
[2020-03-17 07:58] LABS: #Lymphocytes 0.4 thou/uL (1.20-3.40); #Monocytes 0.4 thou/uL (0.11-0.59); %Lymphocytes 2.6 % (21.0-51.0); %Monocytes 2.8 % (0.0-10.0); %Neutrophils 94.5 % (42.0-75.0); Hemoglobin 9.7 g/dL (14.0-18.0); Mean Corpuscular Hemoglobin 27.1 pg (27.0-31.0); Mean Corpuscular Volume 84.7 fL (78.0-98.0); Mean Platelet Volume 8.1 fL (7.4-10.4); Platelet Count 215 thou/uL (130-400); RBC Distribution Width 16.3 % (11.5-14.5); Red Blood Cell (RBC) Count 3.59 mill/uL (4.70-6.10); White Blood Cell (WBC) Count 15.8 thou/uL (4.8-10.8)
[2020-03-17 08:27] LABS: Anion Gap 13 mmol/L (10-20); BUN (Urea Nitrogen) 23 mg/dL (8.9-20.6); Calc. Creatinine Clearance 165 mL/min (70-130); Calcium 8.4 mg/dL (7.8-10.44); Carbon Dioxide 20 mmol/L (22-29); Chloride 108 mmol/L (98-107); Glucose 122 mg/dL (70-105); Potassium 4.3 mmol/L (3.5-5.1); Sodium 137 mmol/L (136-145)
[2020-03-17] MEDS: Acetaminophen 325 MG TAB PO PRN ×2 (09:25→17:07)
[2020-03-17] MEDS: Zinc Sulfate 220 MG CAP PO SCH (09:25)
[2020-03-17] MEDS: Amlodipine 5 MG TAB PO SCH (09:26)
[2020-03-17] MEDS: Ascorbic Acid 500 mg Chewable Tablet PO SCH (09:26)
[2020-03-17] MEDS: Cholecalciferol 1,000 UNITS (25 MCG) TAB PO SCH (09:27)
[2020-03-17] MEDS: guaiFENesin ER 600 MG TAB PO SCH ×4 (09:27→21:18)
[2020-03-17] MEDS: Multivit, Therapeutic 1 TAB PO SCH (09:27)
[2020-03-17] MEDS: Senokot S 8.6-50 MG TAB PO SCH ×2 (09:27→21:16)
[2020-03-17] MEDS: Potassium Chloride 20 MEQ TAB PO SCH (09:28)
[2020-03-17] MEDS: Colchicine 0.6 MG TAB PO SCH ×2 (09:29→21:18)
[2020-03-17] MEDS: Sodium Chloride 0.9% 1,000 ML IV SCH ×2 (17:06→21:32)
[2020-03-17] MEDS: HYDROcodone/Acetaminophen 5/325 mg Tablet PO PRN (21:17)
[2020-03-17] MEDS: Gabapentin 300 MG CAP PO SCH (21:18)
[2020-03-17] MEDS: Enoxaparin Sodium 40 MG/0.4 ML SYRINGE SC SCH (21:19)
[2020-03-18] MEDS: Ipratropium/Albuterol Sulfate 4 GM AER IH SCH ×5 (00:55→23:39)
[2020-03-18 03:24] LABS: #Lymphocytes 0.6 thou/uL (1.20-3.40); #Monocytes 0.4 thou/uL (0.11-0.59); %Basophils 0.2 % (0.0-1.0); %Eosinophils 0.1 % (0.0-10.0); %Lymphocytes 4.6 % (21.0-51.0); %Monocytes 3.6 % (0.0-10.0); %Neutrophils 91.5 % (42.0-75.0); Hemoglobin 9.3 g/dL (14.0-18.0); Mean Corpuscular HGB CONC 30.9 g/dL (32.0-36.0); Mean Corpuscular Hemoglobin 25.8 pg (27.0-31.0); Mean Corpuscular Volume 83.3 fL (78.0-98.0); Mean Platelet Volume 8.2 fL (7.4-10.4); Platelet Count 221 thou/uL (130-400); RBC Distribution Width 16.6 % (11.5-14.5); Red Blood Cell (RBC) Count 3.61 mill/uL (4.70-6.10)
[2020-03-18 03:45] LABS: Anion Gap 11 mmol/L (10-20); BUN (Urea Nitrogen) 27 mg/dL (8.9-20.6); Calc. Creatinine Clearance 173 mL/min (70-130); Calcium 8.1 mg/dL (7.8-10.44); Carbon Dioxide 18 mmol/L (22-29); Chloride 102 mmol/L (98-107); Glucose 118 mg/dL (70-105); Sodium 127 mmol/L (136-145)
[2020-03-18] MEDS: Sodium Chloride 0.9% 1,000 ML IV SCH (06:02)
[2020-03-18] MEDS: methylPREDNISolone Sod Succ 40 MG VIAL IVP SCH ×2 (06:02→20:18)
[2020-03-18] MEDS: HYDROcodone/Acetaminophen 5/325 mg Tablet PO PRN ×5 (06:24→22:45)
[2020-03-18] MEDS: Acetaminophen 325 MG TAB PO PRN (06:25)
[2020-03-18] MEDS: Gabapentin 300 MG CAP PO SCH ×3 (09:54→20:18)
[2020-03-18] MEDS: Ascorbic Acid 500 mg Chewable Tablet PO SCH (09:55)
[2020-03-18] MEDS: Senokot S 8.6-50 MG TAB PO SCH ×2 (09:56→20:20)
[2020-03-18] MEDS: Zinc Sulfate 220 MG CAP PO SCH (09:56)
[2020-03-18] MEDS: Potassium Chloride 20 MEQ TAB PO SCH (09:56)
[2020-03-18] MEDS: Multivit, Therapeutic 1 TAB PO SCH (09:57)
[2020-03-18] MEDS: guaiFENesin ER 600 MG TAB PO SCH ×4 (09:57→20:20)
[2020-03-18] MEDS: Amlodipine 5 MG TAB PO SCH (09:58)
[2020-03-18] MEDS: Cholecalciferol 1,000 UNITS (25 MCG) TAB PO SCH (09:58)
[2020-03-18] MEDS: Colchicine 0.6 MG TAB PO SCH ×2 (10:43→20:19)
[2020-03-18 15:39] LABS: Cytoplasmic (C-ANCA) <1:20 titer (Neg:<1:20); Myeloperoxidase AutoAbs <9.0 U/mL (0.0-9.0); Perinuclear (P-ANCA) <1:20 titer (Neg:<1:20); Proteinase-3 AutoAbs Less than 3.5 U/mL (0.0-3.5)
[2020-03-18] MEDS: Mometasone 200 MCG/Formoterol 5 MCG 120 PUFF INHALER INH SCH (19:21)
[2020-03-18] MEDS: Enoxaparin Sodium 40 MG/0.4 ML SYRINGE SC SCH (20:18)
[2020-03-19] MEDS: HYDROcodone/Acetaminophen 5/325 mg Tablet PO PRN ×4 (05:40→18:17)
[2020-03-19 06:00] LABS: #Lymphocytes 1.1 thou/uL (1.20-3.40); #Monocytes 0.7 thou/uL (0.11-0.59); #Neutrophils 8.5 thou/uL (1.40-6.50); %Basophils 0.1 % (0.0-1.0); %Eosinophils 0.3 % (0.0-10.0); %Lymphocytes 10.3 % (21.0-51.0); %Neutrophils 82.3 % (42.0-75.0); Hemoglobin 10.2 g/dL (14.0-18.0); Mean Corpuscular HGB CONC 32.5 g/dL (32.0-36.0); Mean Corpuscular Hemoglobin 27.2 pg (27.0-31.0); Mean Corpuscular Volume 83.8 fL (78.0-98.0); Platelet Count 193 thou/uL (130-400); RBC Distribution Width 16.4 % (11.5-14.5); Red Blood Cell (RBC) Count 3.73 mill/uL (4.70-6.10); White Blood Cell (WBC) Count 10.3 thou/uL (4.8-10.8)
[2020-03-19 06:16] LABS: Anion Gap 12 mmol/L (10-20); BUN (Urea Nitrogen) 27 mg/dL (8.9-20.6); Calc. Creatinine Clearance 165 mL/min (70-130); Calcium 8.3 mg/dL (7.8-10.44); Carbon Dioxide 23 mmol/L (22-29); Chloride 106 mmol/L (98-107); Glucose 110 mg/dL (70-105); Potassium 4.2 mmol/L (3.5-5.1); Sodium 137 mmol/L (136-145)
[2020-03-19] MEDS: Ipratropium/Albuterol Sulfate 4 GM AER IH SCH ×3 (06:56→19:35)
[2020-03-19] MEDS: Mometasone 200 MCG/Formoterol 5 MCG 120 PUFF INHALER INH SCH ×2 (06:56→19:35)
[2020-03-19] MEDS: methylPREDNISolone Sod Succ 40 MG VIAL IVP SCH (08:16)
[2020-03-19] MEDS: Amlodipine 5 MG TAB PO SCH (08:16)
[2020-03-19] MEDS: Ascorbic Acid 500 mg Chewable Tablet PO SCH (08:17)
[2020-03-19] MEDS: Gabapentin 300 MG CAP PO SCH ×3 (08:17→20:16)
[2020-03-19] MEDS: Colchicine 0.6 MG TAB PO SCH ×2 (08:17→20:17)
[2020-03-19] MEDS: Zinc Sulfate 220 MG CAP PO SCH (08:19)
[2020-03-19] MEDS: Multivit, Therapeutic 1 TAB PO SCH (08:19)
[2020-03-19] MEDS: guaiFENesin ER 600 MG TAB PO SCH ×4 (08:19→20:17)
[2020-03-19] MEDS: Cholecalciferol 1,000 UNITS (25 MCG) TAB PO SCH (08:19)
[2020-03-19] MEDS: Senokot S 8.6-50 MG TAB PO SCH ×2 (08:20→19:46)
[2020-03-19 19:31] VITALS: TEMP 98.5
[2020-03-19] MEDS: Enoxaparin Sodium 40 MG/0.4 ML SYRINGE SC SCH (20:16)
[2020-03-20] MEDS: HYDROcodone/Acetaminophen 5/325 mg Tablet PO PRN ×3 (00:01→10:53)
[2020-03-20] MEDS: Ipratropium/Albuterol Sulfate 4 GM AER IH SCH ×3 (02:58→13:26)
[2020-03-20 05:48] LABS: #Eosinphils 0.5 thou/uL (0.0-0.7); #Lymphocytes 2.4 thou/uL (1.20-3.40); #Monocytes 1.2 thou/uL (0.11-0.59); #Neutrophils 5.8 thou/uL (1.40-6.50); %Basophils 0.1 % (0.0-1.0); %Eosinophils 4.7 % (0.0-10.0); %Lymphocytes 24.6 % (21.0-51.0); %Monocytes 12.5 % (0.0-10.0); %Neutrophils 58.1 % (42.0-75.0); Hemoglobin 9.9 g/dL (14.0-18.0); Mean Corpuscular Volume 83.8 fL (78.0-98.0); Platelet Count 202 thou/uL (130-400); RBC Distribution Width 16.5 % (11.5-14.5); Red Blood Cell (RBC) Count 3.81 mill/uL (4.70-6.10); White Blood Cell (WBC) Count 9.9 thou/uL (4.8-10.8)
[2020-03-20 06:07] LABS: Anion Gap 12 mmol/L (10-20); BUN (Urea Nitrogen) 27 mg/dL (8.9-20.6); Calc. Creatinine Clearance 173 mL/min (70-130); Carbon Dioxide 24 mmol/L (22-29); Chloride 105 mmol/L (98-107); Glucose 88 mg/dL (70-105); Potassium 3.7 mmol/L (3.5-5.1); Sodium 137 mmol/L (136-145)
[2020-03-20] MEDS: Mometasone 200 MCG/Formoterol 5 MCG 120 PUFF INHALER INH SCH (07:03)
[2020-03-20] MEDS ORDERED: predniSONE 20 MG TAB PO SCH (08:00)
[2020-03-20] MEDS: Multivit, Therapeutic 1 TAB PO SCH (09:22)
[2020-03-20] MEDS: Gabapentin 300 MG CAP PO SCH ×2 (09:22→14:58)
[2020-03-20] MEDS: Ascorbic Acid 500 mg Chewable Tablet PO SCH (09:24)
[2020-03-20] MEDS: Senokot S 8.6-50 MG TAB PO SCH (09:24)
[2020-03-20] MEDS: Amlodipine 5 MG TAB PO SCH (09:24)
[2020-03-20] MEDS: Colchicine 0.6 MG TAB PO SCH (09:24)
[2020-03-20] MEDS: Cholecalciferol 1,000 UNITS (25 MCG) TAB PO SCH (09:26)
[2020-03-20 09:28] VITALS: BP 156/72
[2020-03-20] MEDS: guaiFENesin ER 600 MG TAB PO SCH ×2 (09:34)
[2020-03-20] MEDS: Zinc Sulfate 220 MG CAP PO SCH (09:34)
[2020-03-20 12:51] LABS: ANA Symphony (Qualitative) Negative (Negative); ANA Symphony (Quantitative) 0.3 Ratio (< 0.7 Negative); CCP IgG Antibody 1.1 EliAU/mL (<7 Negative); EliA RAS New Method **** NEW METHOD ****; EliA Vaculitis New Method **** NEW METHOD ****; Glomerular Basemt Membrane Ab Less than 1.9 EliAU/mL (<7 Negative); Rheumatoid Factor IgM Antibody Less than 0.5 IU/mL (<3.5 Negative); dsDNA IgG Antibody Less than 0.5 IU/mL (<10 Negative)
== END 2020-03-20 16:14 | disposition home or self-care (01) | DRG 190 ==
LOC: ERS 13:18 → SDC/OP 13:18 → ERHOLD 16:30 → IMCU/EMU 20:31 → T4-A 03-18 14:41
PROVIDERS: ADMIT Internal Medicine; ATTEND Internal Medicine
PROC: 5A09457 Assistance with Respiratory Ventilation, 24-96 Consecutive Hours, Continuous Positive Airway Pressure (ICD-10-PCS; principal; 2020-03-15)
PROC: 8E0ZXY6 Isolation (ICD-10-PCS; 2020-03-15)
DX: J44.1 Chronic obstructive pulmonary disease with (acute) exacerbation (principal); J80 Acute respiratory distress syndrome; R65.11 Systemic inflammatory response syndrome (SIRS) of non-infectious origin with acute organ dysfunction; M62.82 Rhabdomyolysis; Z20.822 Contact with and (suspected) exposure to COVID-19; D64.9 Anemia, unspecified; G89.4 Chronic pain syndrome; M41.9 Scoliosis, unspecified; F17.210 Nicotine dependence, cigarettes, uncomplicated; I50.9 Heart failure, unspecified; E87.6 Hypokalemia; F14.10 Cocaine abuse, uncomplicated; F15.10 Other stimulant abuse, uncomplicated; F12.10 Cannabis abuse, uncomplicated; Z28.21 Immunization not carried out because of patient refusal; Z79.899 Other long term (current) drug therapy; Z82.49 Family history of ischemic heart disease and other diseases of the circulatory system; Z80.1 Family history of malignant neoplasm of trachea, bronchus and lung
CPT/HCPCS: 0240U; 36415; 71045; 71046; 71275; 80048; 80053; 80306; 82550; 82728; 83516; 83520; 83605; 83690; 83735; 83880; 84145; 84484; 85025; 85379; 86038; 86140; 86200; 86225; 86256; 87040; 87449; 87635; 93005; 94640; 94660; 96365; 96375; 99292; J0456; J0692; J0696; J1100; J1650; J1956; J2405; J2920; J2930; J3475; J3490; J7050; J7512; J7620; Q9967; U0003; U0005

== ENCOUNTER 2021-01-09 19:11 | Inpatient (IN) | payer MEDICARE, MEDICAID ==
[2021-01-09 19:57] LABS: #Eosinphils 0.1 thou/uL (0.0-0.7); #Lymphocytes 0.6 thou/uL (1.20-3.40); #Monocytes 0.4 thou/uL (0.11-0.59); #Neutrophils 11.6 thou/uL (1.40-6.50); %Basophils 0.1 % (0.0-1.0); %Eosinophils 0.5 % (0.0-10.0); %Lymphocytes 4.9 % (21.0-51.0); %Monocytes 3.4 % (0.0-10.0); Hemoglobin 9.4 g/dL (14.0-18.0); Mean Corpuscular HGB CONC 30.7 g/dL (32.0-36.0); Mean Corpuscular Hemoglobin 24.4 pg (27.0-31.0); Mean Corpuscular Volume 79.4 fL (78.0-98.0); Mean Platelet Volume 8.3 fL (7.4-10.4); Platelet Count 183 thou/uL (130-400); Red Blood Cell (RBC) Count 3.84 mill/uL (4.70-6.10); White Blood Cell (WBC) Count 12.8 thou/uL (4.8-10.8)
[2021-01-09 20:05] LABS: INR-International Normal Ratio 1.3; Prothrombin Time 16.7 sec (12.0-14.7)
[2021-01-09 20:16] LABS: ALT (SGPT) Less than 7 U/L (8-55); AST (SGOT) 25 U/L (5-34); Albumin 3.6 g/dL (3.5-5.0); Alkaline Phosphatase 66 U/L (40-110); Anion Gap 13 mmol/L (10-20); BUN (Urea Nitrogen) 8 mg/dL (8.9-20.6); Bilirubin, Total 0.2 mg/dL (0.2-1.2); Calc. Creatinine Clearance 0 mL/min (70-130); Calcium 8.6 mg/dL (7.8-10.44); Carbon Dioxide 21 mmol/L (22-29); Chloride 106 mmol/L (98-107); Globulin 2.9 g/dL (2.4-3.5); Glucose 98 mg/dL (70-105); Lipase 6 U/L (8-78); Potassium 3.4 mmol/L (3.5-5.1); Protein, Total 6.5 g/dL (6.0-8.3); Sodium 137 mmol/L (136-145)
[2021-01-09] MEDS ORDERED: cefTRIAXone\\ROCEPHIN 2 GM VIAL ONE (20:36)
[2021-01-09] MEDS ORDERED: Azithromycin 500 MG VIAL ONE (21:34)
[2021-01-09 22:08] LABS: SARS-CoV-2 NAA Rapid Test Not Detected (NotDetected)
[2021-01-09] MEDS ORDERED: Albuterol Sulfate 2.5 mg/3 ml Neb NEB PRN (23:18)
[2021-01-09] MEDS ORDERED: Senokot S 8.6-50 MG TAB PO PRN (23:22)
[2021-01-09] MEDS ORDERED: Ondansetron PF 4 MG/2 ML Vial IVP PRN (23:22)
[2021-01-09] MEDS ORDERED: Ondansetron ODT 4 MG TAB PO PRN (23:22)
[2021-01-09] MEDS ORDERED: cefTRIAXone\\ROCEPHIN 1 GM in Sodium Chloride 0.9% 100 ML IVPB SCH (23:30)
[2021-01-09] MEDS ORDERED: Potassium Chloride 20 MEQ TAB PO SCH (23:45)
[2021-01-10 00:48] LABS: Magnesium 1.7 mg/dL (1.6-2.6)
[2021-01-10 01:14] VITALS: BMI 25.6
[2021-01-10] MEDS: Nicotine 14 MG PATCH TD SCH ×2 (01:37→22:03)
[2021-01-10 01:52] LABS: Bacteria/HPF None Seen HPF (None Seen); Bilirubin Negative (Negative); Blood, Urine Negative (Negative); Clarity Clear (Clear); Glucose, Urine (Dipstick) Normal (Negative); Ketone, Urine Negative (Negative); Leukocyte Negative Leu/uL (Negative); Nitrite Negative (Negative); Protein, Urine (Dipstick) 10 mg/dL (Neg-Trace); RBC/HPF 0-3 HPF (0-3); Specific Gravity, Urine 1.017 (1.002-1.036); Squamous Epithelial None Seen HPF (0-3); Urobilinogen Normal mg/dL (Less than 2); WBC/HPF 0-3 HPF (0-3); pH, Urine 5.5 (5.0-9.0)
[2021-01-10 01:59] LABS: Urine Culture Reflex No No
[2021-01-10 02:11] LABS: Strep pneumo Urine Ag NEGATIVE (NEGATIVE)
[2021-01-10] MEDS: HYDROcodone/Acetaminophen 10/325 mg Tablet PO PRN (03:57)
[2021-01-10 05:06] LABS: #Lymphocytes 0.6 thou/uL (1.20-3.40); #Monocytes 0.4 thou/uL (0.11-0.59); #Neutrophils 12.1 thou/uL (1.40-6.50); %Eosinophils 0.4 % (0.0-10.0); %Lymphocytes 4.6 % (21.0-51.0); %Monocytes 3.2 % (0.0-10.0); %Neutrophils 91.9 % (42.0-75.0); Hemoglobin 9.1 g/dL (14.0-18.0); Mean Corpuscular HGB CONC 28.6 g/dL (32.0-36.0); Mean Corpuscular Hemoglobin 22.7 pg (27.0-31.0); Mean Corpuscular Volume 79.4 fL (78.0-98.0); Mean Platelet Volume 8.6 fL (7.4-10.4); Platelet Count 191 thou/uL (130-400); RBC Distribution Width 16.1 % (11.5-14.5); White Blood Cell (WBC) Count 13.1 thou/uL (4.8-10.8)
[2021-01-10 05:11] LABS: Anion Gap 12 mmol/L (10-20); BUN (Urea Nitrogen) 9 mg/dL (8.9-20.6); Calc. Creatinine Clearance 162 mL/min (70-130); Calcium 8.6 mg/dL (7.8-10.44); Carbon Dioxide 23 mmol/L (22-29); Chloride 106 mmol/L (98-107); Glucose 105 mg/dL (70-105); Potassium 3.9 mmol/L (3.5-5.1); Sodium 137 mmol/L (136-145)
[2021-01-10] MEDS ORDERED: predniSONE 20 MG TAB PO SCH (08:00)
[2021-01-10] MEDS: Potassium Chloride 20 MEQ TAB PO SCH ×2 (08:06→15:54)
[2021-01-10] MEDS: Gabapentin 300 MG CAP PO SCH ×3 (08:06→21:06)
[2021-01-10] MEDS: Cyclobenzaprine 10 MG TAB PO SCH ×3 (08:07→21:06)
[2021-01-10] MEDS: Famotidine 20 MG TAB PO SCH ×2 (08:07→21:07)
[2021-01-10] MEDS: Enoxaparin Sodium 40 MG/0.4 ML SYRINGE SC SCH (08:08)
[2021-01-10] MEDS ORDERED: Furosemide 40 MG TAB PO SCH (09:00)
[2021-01-10] MEDS ORDERED: FLU VACC QS2021-22(6MOS UP)/PF 60 MCG/0.5 ML SYRINGE IM ONE (09:00)
[2021-01-10] MEDS: Lactated Ringer's 1,000 ML IV SCH ×2 (15:53→23:27)
[2021-01-10 16:08] LABS: Legionella Urinary Ag Negative (Negative)
[2021-01-10] MEDS: Vancomycin 1.5 GRAM/300 ML BAG 1.5 GM in Premix Bag 1 BAG IVPB SCH ×2 (16:33→23:10)
[2021-01-10] MEDS ORDERED: Furosemide 20 MG TAB PO SCH (21:00)
[2021-01-10] MEDS ORDERED: cefTRIAXone\\ROCEPHIN 1 GM in Sodium Chloride 0.9% 100 ML IVPB SCH (21:00)
[2021-01-10] MEDS: Acetaminophen 325 MG TAB PO PRN (21:07)
[2021-01-10] MEDS: Azithromycin 500 MG in Sodium Chloride 0.9% 250 ML 250 ML IVPB SCH (21:52)
[2021-01-11] MEDS: Acetaminophen 325 MG TAB PO PRN (01:17)
[2021-01-11] MEDS: Cyclobenzaprine 10 MG TAB PO SCH ×3 (08:23→20:55)
[2021-01-11] MEDS: Gabapentin 300 MG CAP PO SCH ×3 (08:23→20:56)
[2021-01-11] MEDS: Famotidine 20 MG TAB PO SCH ×2 (08:24→20:57)
[2021-01-11] MEDS: Potassium Chloride 20 MEQ TAB PO SCH ×2 (08:24→16:22)
[2021-01-11] MEDS: Vancomycin 1.5 GRAM/300 ML BAG 1.5 GM in Premix Bag 1 BAG IVPB SCH ×2 (08:25→16:22)
[2021-01-11] MEDS: Enoxaparin Sodium 40 MG/0.4 ML SYRINGE SC SCH (08:25)
[2021-01-11 12:49] LABS: Anion Gap 15 mmol/L (10-20); BUN (Urea Nitrogen) 14 mg/dL (8.9-20.6); Calc. Creatinine Clearance 176 mL/min (70-130); Carbon Dioxide 20 mmol/L (22-29); Chloride 107 mmol/L (98-107); Glucose 100 mg/dL (70-105); Potassium 3.7 mmol/L (3.5-5.1); Sodium 138 mmol/L (136-145)
[2021-01-11 13:07] LABS: #Lymphocytes 0.7 thou/uL (1.20-3.40); #Monocytes 0.4 thou/uL (0.11-0.59); #Neutrophils 10.2 thou/uL (1.40-6.50); %Basophils 0.1 % (0.0-1.0); %Eosinophils 0.4 % (0.0-10.0); %Lymphocytes 6.3 % (21.0-51.0); %Monocytes 3.6 % (0.0-10.0); %Neutrophils 89.6 % (42.0-75.0); Hemoglobin 9.5 g/dL (14.0-18.0); Mean Corpuscular HGB CONC 30.1 g/dL (32.0-36.0); Mean Corpuscular Hemoglobin 23.9 pg (27.0-31.0); Mean Corpuscular Volume 79.4 fL (78.0-98.0); Mean Platelet Volume 8.9 fL (7.4-10.4); Platelet Count 199 thou/uL (130-400); RBC Distribution Width 16.1 % (11.5-14.5); Red Blood Cell (RBC) Count 3.95 mill/uL (4.70-6.10); White Blood Cell (WBC) Count 11.4 thou/uL (4.8-10.8)
[2021-01-11 20:02] LABS: HBSAB Concentration Less than 8.00 mIU/mL; HBSAg Index 0.47 S/CO (0-0.99); HIV (1/2) Antibody/Antigen Non-Reactive (NonReactive); Hep B Surf AB Non-Reactive (NonReactive); Hep B Surf Ag Non-Reactive S/CO (NonReactive); Hep C IgG Ab Non-Reactive (NonReactive); Hep C Index 0.08 S/CO (0-0.79)
[2021-01-11] MEDS: Cefepime 2 GM in Sodium Chloride 0.9% 100 ML IVPB SCH (20:56)
[2021-01-11] MEDS ORDERED: Azithromycin 500 MG in Sodium Chloride 0.9% 250 ML 250 ML IVPB SCH (21:00)
[2021-01-11] MEDS: Azithromycin 500 MG in Sodium Chloride 0.9% 250 ML 250 ML IVPB SCH (21:49)
[2021-01-11] MEDS: Nicotine 14 MG PATCH TD SCH (23:46)
[2021-01-12] MEDS: Vancomycin 1.5 GRAM/300 ML BAG 1.5 GM in Premix Bag 1 BAG IVPB SCH ×3 (00:25→18:30)
[2021-01-12 05:18] LABS: #Eosinphils 0.2 thou/uL (0.0-0.7); #Lymphocytes 0.8 thou/uL (1.20-3.40); #Monocytes 0.5 thou/uL (0.11-0.59); #Neutrophils 8.8 thou/uL (1.40-6.50); %Basophils 0.1 % (0.0-1.0); %Eosinophils 1.5 % (0.0-10.0); %Lymphocytes 7.8 % (21.0-51.0); %Monocytes 4.6 % (0.0-10.0); Hemoglobin 9.6 g/dL (14.0-18.0); Mean Corpuscular HGB CONC 29.6 g/dL (32.0-36.0); Mean Corpuscular Hemoglobin 23.8 pg (27.0-31.0); Mean Corpuscular Volume 80.1 fL (78.0-98.0); Mean Platelet Volume 8.1 fL (7.4-10.4); Platelet Count 196 thou/uL (130-400); RBC Distribution Width 16.1 % (11.5-14.5); Red Blood Cell (RBC) Count 4.03 mill/uL (4.70-6.10); White Blood Cell (WBC) Count 10.2 thou/uL (4.8-10.8)
[2021-01-12 05:39] LABS: Anion Gap 15 mmol/L (10-20); BUN (Urea Nitrogen) 17 mg/dL (8.9-20.6); Calc. Creatinine Clearance 170 mL/min (70-130); Calcium 8.9 mg/dL (7.8-10.44); Carbon Dioxide 19 mmol/L (22-29); Chloride 109 mmol/L (98-107); Glucose 102 mg/dL (70-105); Potassium 3.8 mmol/L (3.5-5.1); Sodium 139 mmol/L (136-145)
[2021-01-12] MEDS ORDERED: Lactated Ringer's 1,000 ML IV SCH (07:45)
[2021-01-12 08:04] LABS: Lactic Acid 1.2 mmol/L (0.5-2.2)
[2021-01-12] MEDS: Cyclobenzaprine 10 MG TAB PO SCH ×3 (08:13→20:46)
[2021-01-12] MEDS: Enoxaparin Sodium 40 MG/0.4 ML SYRINGE SC SCH (08:13)
[2021-01-12] MEDS: Gabapentin 300 MG CAP PO SCH ×3 (08:14→20:45)
[2021-01-12] MEDS: Famotidine 20 MG TAB PO SCH ×2 (08:15→20:47)
[2021-01-12] MEDS: Cefepime 2 GM in Sodium Chloride 0.9% 100 ML IVPB SCH ×2 (08:15→20:47)
[2021-01-12] MEDS: Potassium Chloride 20 MEQ TAB PO SCH ×2 (08:15→17:12)
[2021-01-12] MEDS: HYDROcodone/Acetaminophen 10/325 mg Tablet PO PRN ×2 (11:05→17:15)
[2021-01-12 11:38] LABS: Syphilis Antibody Nonreactive (Nonreactive); Syphilis Antibody Index 0.04 S/CO (<1.00 Non-Reactive)
[2021-01-12] MEDS ORDERED: predniSONE 20 MG TAB PO SCH (13:15)
[2021-01-12 15:28] LABS: Vancomycin, Trough 23.6 ug/mL
[2021-01-12] MEDS: VANCOMYCIN 1.25 GM/250 ML BAG 1.25 GM in Premix Bag 1 BAG IVPB SCH (17:13)
[2021-01-12] MEDS: Mometasone 200 MCG/Formoterol 5 MCG 120 PUFF INHALER INH SCH (18:17)
[2021-01-12] MEDS: Azithromycin 500 MG in Sodium Chloride 0.9% 250 ML 250 ML IVPB SCH (22:46)
[2021-01-12] MEDS: Nicotine 14 MG PATCH TD SCH (23:35)
[2021-01-13] MEDS: VANCOMYCIN 1.25 GM/250 ML BAG 1.25 GM in Premix Bag 1 BAG IVPB SCH ×5 (01:42→23:54)
[2021-01-13] MEDS: HYDROcodone/Acetaminophen 10/325 mg Tablet PO PRN ×4 (01:43→23:18)
[2021-01-13 05:17] LABS: #Eosinphils 0.2 thou/uL (0.0-0.7); #Lymphocytes 1.3 thou/uL (1.20-3.40); #Monocytes 0.5 thou/uL (0.11-0.59); #Neutrophils 4.1 thou/uL (1.40-6.50); %Basophils 0.4 % (0.0-1.0); %Eosinophils 2.7 % (0.0-10.0); %Lymphocytes 21.3 % (21.0-51.0); %Monocytes 8.8 % (0.0-10.0); %Neutrophils 66.8 % (42.0-75.0); Hemoglobin 8.5 g/dL (14.0-18.0); Mean Corpuscular HGB CONC 29.6 g/dL (32.0-36.0); Mean Corpuscular Hemoglobin 23.3 pg (27.0-31.0); Mean Corpuscular Volume 78.9 fL (78.0-98.0); Mean Platelet Volume 7.8 fL (7.4-10.4); Platelet Count 192 thou/uL (130-400); RBC Distribution Width 15.9 % (11.5-14.5); Red Blood Cell (RBC) Count 3.65 mill/uL (4.70-6.10); White Blood Cell (WBC) Count 6.1 thou/uL (4.8-10.8)
[2021-01-13] MEDS: Lactated Ringer's 1,000 ML IV SCH ×2 (05:17→21:35)
[2021-01-13 05:42] LABS: Anion Gap 9 mmol/L (10-20); BUN (Urea Nitrogen) 17 mg/dL (8.9-20.6); Calc. Creatinine Clearance 181 mL/min (70-130); Calcium 8.5 mg/dL (7.8-10.44); Carbon Dioxide 24 mmol/L (22-29); Chloride 107 mmol/L (98-107); Glucose 93 mg/dL (70-105); Potassium 3.9 mmol/L (3.5-5.1); Sodium 136 mmol/L (136-145)
[2021-01-13] MEDS: Mometasone 200 MCG/Formoterol 5 MCG 120 PUFF INHALER INH SCH ×2 (07:44→18:33)
[2021-01-13] MEDS: Cefepime 2 GM in Sodium Chloride 0.9% 100 ML IVPB SCH ×2 (08:00→19:58)
[2021-01-13] MEDS: Potassium Chloride 20 MEQ TAB PO SCH ×3 (08:01→16:17)
[2021-01-13] MEDS: Famotidine 20 MG TAB PO SCH ×2 (08:01→20:00)
[2021-01-13] MEDS: Cyclobenzaprine 10 MG TAB PO SCH ×3 (08:01→20:00)
[2021-01-13] MEDS: Gabapentin 300 MG CAP PO SCH ×3 (08:01→20:00)
[2021-01-13] MEDS: Enoxaparin Sodium 40 MG/0.4 ML SYRINGE SC SCH (08:02)
[2021-01-13] MEDS: predniSONE 20 MG TAB PO SCH (08:02)
[2021-01-13] MEDS: Ferrous Sulfate 325 MG TAB PO SCH (08:02)
[2021-01-13 16:38] LABS: Vancomycin, Trough 17.6 ug/mL
[2021-01-13 19:05] LABS: HIV (1/2) Antibody/Antigen Non-Reactive (NonReactive); HIV 1/2 INDEX 0.08 S/CO (<1.00)
[2021-01-13] MEDS: Azithromycin 500 MG in Sodium Chloride 0.9% 250 ML 250 ML IVPB SCH (21:35)
[2021-01-13] MEDS: Nicotine 14 MG PATCH TD SCH (23:18)
[2021-01-14 04:58] LABS: #Eosinphils 0.4 thou/uL (0.0-0.7); #Lymphocytes 1.8 thou/uL (1.20-3.40); #Monocytes 0.6 thou/uL (0.11-0.59); #Neutrophils 3.5 thou/uL (1.40-6.50); %Basophils 0.5 % (0.0-1.0); %Eosinophils 5.9 % (0.0-10.0); %Lymphocytes 27.7 % (21.0-51.0); %Monocytes 10.1 % (0.0-10.0); %Neutrophils 55.8 % (42.0-75.0); Hemoglobin 8.7 g/dL (14.0-18.0); Mean Corpuscular HGB CONC 30.7 g/dL (32.0-36.0); Mean Corpuscular Hemoglobin 24.2 pg (27.0-31.0); Mean Corpuscular Volume 78.7 fL (78.0-98.0); Mean Platelet Volume 7.7 fL (7.4-10.4); Platelet Count 180 thou/uL (130-400); RBC Distribution Width 16.1 % (11.5-14.5); White Blood Cell (WBC) Count 6.4 thou/uL (4.8-10.8)
[2021-01-14 05:23] LABS: Anion Gap 11 mmol/L (10-20); BUN (Urea Nitrogen) 16 mg/dL (8.9-20.6); Calc. Creatinine Clearance 194 mL/min (70-130); Calcium 8.7 mg/dL (7.8-10.44); Carbon Dioxide 23 mmol/L (22-29); Chloride 105 mmol/L (98-107); Glucose 86 mg/dL (70-105); Potassium 3.6 mmol/L (3.5-5.1); Sodium 135 mmol/L (136-145)
[2021-01-14] MEDS: Mometasone 200 MCG/Formoterol 5 MCG 120 PUFF INHALER INH SCH (06:20)
[2021-01-14] MEDS: predniSONE 20 MG TAB PO SCH (08:08)
[2021-01-14] MEDS: Gabapentin 300 MG CAP PO SCH ×2 (08:08→16:00)
[2021-01-14] MEDS: Cyclobenzaprine 10 MG TAB PO SCH ×2 (08:08→16:00)
[2021-01-14] MEDS: HYDROcodone/Acetaminophen 10/325 mg Tablet PO PRN ×2 (08:09→16:09)
[2021-01-14] MEDS: Potassium Chloride 20 MEQ TAB PO SCH ×2 (08:09→16:32)
[2021-01-14] MEDS: Famotidine 20 MG TAB PO SCH (08:10)
[2021-01-14] MEDS: Enoxaparin Sodium 40 MG/0.4 ML SYRINGE SC SCH (08:10)
[2021-01-14] MEDS: Cefepime 2 GM in Sodium Chloride 0.9% 100 ML IVPB SCH (08:19)
[2021-01-14] MEDS: Ferrous Sulfate 325 MG TAB PO SCH (08:19)
[2021-01-14] MEDS: VANCOMYCIN 1.25 GM/250 ML BAG 1.25 GM in Premix Bag 1 BAG IVPB SCH ×2 (10:00→16:33)
[2021-01-14] MEDS: Lactated Ringer's 1,000 ML IV SCH (14:18)
[2021-01-14 16:11] VITALS: BP 186/90; TEMP 98.1
[2021-01-14 16:48] LABS: Vancomycin, Trough 9.2 ug/mL
[2021-01-14] MEDS ORDERED: Vancomycin HCl 500 MG in Sodium Chloride 0.9% 100 ML IVPB SCH (18:00)
[2021-01-15] MEDS ORDERED: VANCOMYCIN 1.75 GM/350 ML BAG 1.75 GM in Premix Bag 1 BAG IVPB SCH (01:00)
== END 2021-01-14 18:00 | disposition home or self-care (01) | DRG 177 ==
LOC: ERS 19:11 → 2SW 23:00 → OBSVTOIN 01-11 13:01
PROVIDERS: ADMIT Student in an Organized Health Care Education/Training Program; ATTEND Hospitalist
DX: J15.212 Pneumonia due to Methicillin resistant Staphylococcus aureus (principal); J96.01 Acute respiratory failure with hypoxia; J44.1 Chronic obstructive pulmonary disease with (acute) exacerbation; J44.0 Chronic obstructive pulmonary disease with (acute) lower respiratory infection; I50.32 Chronic diastolic (congestive) heart failure; F11.20 Opioid dependence, uncomplicated; Z20.822 Contact with and (suspected) exposure to COVID-19; G89.4 Chronic pain syndrome; F17.210 Nicotine dependence, cigarettes, uncomplicated; E87.6 Hypokalemia; D53.9 Nutritional anemia, unspecified; Z79.899 Other long term (current) drug therapy
CPT/HCPCS: 0240U; 36415; 71045; 80048; 80053; 80202; 81001; 82785; 83605; 83690; 83735; 83880; 84145; 84484; 85025; 85610; 85730; 86706; 86780; 86803; 87040; 87070; 87081; 87205; 87340; 87389; 87449; 87899; 93005; 94640; 96365; 96366; 96367; 96372; 96376; G0378; J0456; J0692; J0696; J1650; J3370; J3490; J7050; J7120; J7512; J7620